=== PATIENT | female | born 1940 | race Caucasian/White ===

== ENCOUNTER 2016-05-28 18:41 | Observation (INO) ==
[2016-05-28] MEDS ORDERED: Ondansetron 4 MG/2 ML VIAL IVP ONE (18:48)
[2016-05-28] MEDS ORDERED: 0.9 % Sodium Chloride 1,000 ML IVC ONE (18:48)
[2016-05-28] MEDS ORDERED: *HR* HYDROmorphone (PF) 1 MG/ML SYRINGE IVP ONE (18:48)
--- NOTE | 2016-05-28 18:50 | Emergency Department Note ---
Disposition Clinical Impression: Gastroenteritis, Malaise and fatigue Abdominal pain Qualifiers: Abdominal location: periumbilical Qualified Code(s): R10.33 - Periumbilical pain Disposition: Admitted As Inpatient Referrals: Yaa Purvis CNP [Primary Care Provider] - Forms: Work/School Release, ED Satisfaction Letter Abdominal Pain HPI - General Chief Complaint: ED Abdominal Pain Stated Complaint: fall with abd pain and vomiting Time Seen by Provider: 05/28/16 18:45 Source: patient, EMS Mode of arrival: EMS Limitations: physical limitation Nursing Notes Reviewed: Yes Vital Signs Reviewed: Yes - History of Present Illness HPI Narrative: Impression presents with abdominal pain with bilious emesis. She initially reported that she might have had a fall but she has denied this on arrival. She is unable to localize abdominal pain but for EMS there is some indication of pain towards the right lower quadrant. She is unable to tell me when this started. She denies chest pain shortness of breath. She indicates that she is not having diarrhea. She has not been specific fevers or chills. She is unable to tell me if she has had exposure to similar problem, recent antibiotic or concern for food borne illness. She has not had pain like this before. After the first interview with this patient and ordering of laboratories returning to try to get more information from her. She is able indicate she had one episode of diarrhea and has been passing gas. The onset of this was this morning. Her pain is umbilical and it comes and goes. She has not had previous abdominal problems or procedures of any significance. Pt Subjective Complaint: abdominal pain Onset (ago): unknown Consistency: Worsening Location: periumbilical Pain Severity: moderate, severe Quality: cannot describe Radiation: none Improves with: nothing Worsens with: nothing Associated symptoms: Reports: nausea, vomiting, diarrhea. Denies: fever, chills Treatments prior to arrival: none - Related Data Home Medications Medication Instructions Recorded Confirmed Amlodipine [Norvasc] 5 mg PO DAILY 05/28/16 05/28/16 Furosemide [Lasix] 40 mg PO DAILY 05/28/16 05/28/16 Glipizide/Metformin HCl 1 each PO BID 05/28/16 05/28/16 [Glipizide-Metformin 5-500 mg] Hydrochlorothiazide 25 mg PO DAILY 05/28/16 05/28/16 Ibuprofen [Motrin] 600 mg PO TID PRN 05/28/16 05/28/16 Insulin Glargine,Hum.rec.anlog 20 unit SQ HS 05/28/16 05/28/16 [Lantus Solostar] Lisinopril [Zestril] 40 mg PO HS 05/28/16 05/28/16 Lovastatin [Altoprev] 40 mg PO QAM 05/28/16 05/28/16 Metoprolol [Lopressor] 100 mg PO BID 05/28/16 05/28/16 Potassium Chloride [Klor-Con 10] 10 meq PO QAM 05/28/16 05/28/16 Allergies Allergy/AdvReac Type Severity Reaction Status Date / Time Penicillins [PCN] Allergy Anaphylaxis Verified 05/28/16 19:02 All systems ED: reviewed and negative except as stated. Abdominal Pain PMH - Past Medical History Medical history: Reports: diabetes, hyperlipidemia, hypertension. Denies: coronary artery disease Female Surgical History: Reports: cataract (Retinal detachment) - Social History Smoking status: Never smoker Alcohol use: Reports: none Drug use: Reports: none Physical Exam - General Limitations: physical limitation (Patient persistently vomiting and with this is declining to answer many questions. This also has limited her ability to comply with exam.) General appearance: anxious, in distress - Head Head exam: atraumatic, normocephalic, normal inspection - Eye Eye exam: Present: normal appearance, PERRL, EOMI. Absent: scleral icterus, conjunctival injection - ENT ENT exam: normal exam, normal oropharynx, mucous membranes moist - Neck Neck exam: Present: normal inspection, full ROM, trachea midline - Chest Chest inspection: Present: normal inspection, symmetric chest wall rise - Respiratory Respiratory exam: Present: normal lung sounds bilaterally. Absent: respiratory distress, wheezes, prolonged expiratory phase - Cardiovascular Cardiovascular exam: Present: regular rate, normal rhythm, normal heart sounds - Abdominal Exam Abdominal exam: Present: soft, tenderness (Mild in the abdomen. She did not seem to have much pain response with palpation.), diminished bowel sounds. Absent: distention, guarding, rebound, rigidity, Wills's sign, tenderness at McBurney's Point - Extremities Exam Extremities exam: Present: normal inspection, full ROM, normal capillary refill. Absent: tenderness, pedal edema - Expanded Lower Extremity Exam Neurovascular/Tendon exam: Present: normal capillary refill. Absent: motor deficit, sensory deficit, tendon deficit Gait: not tested/not observed - Back Exam Back exam: Present: normal inspection, full ROM. Absent: tenderness, CVA tenderness (R), CVA tenderness (L) - Neurological Exam Neurological exam: Present: alert. Absent: motor sensory deficit - Psychiatric Psychiatric exam: Present: normal affect, anxious - Skin Skin exam: Present: intact, diaphoresis, pallor. Absent: cyanosis Course Course Narrative: 2020: All labs, EKG and imaging has been discussed with patient, family and ultimately with Dr. Mccuryd for inpatient observation and hydration. Verbal orders are obtained for her further care and she is being coordinated to an inpatient. She has remained in stable condition and has not been having further vomiting or diarrhea post initiation of IV fluids and medications. Vital Signs Temperature 97.0 F L 05/28/16 18:47 Pulse Rate 75 05/28/16 18:47 Respiratory Rate 18 05/28/16 18:47 Blood Pressure 91/54 05/28/16 18:47 O2 Sat by Pulse Oximetry 92 05/28/16 18:47 Temperature 97.0 F L 05/28/16 18:54 Pulse Rate 57 05/28/16 19:51 Respiratory Rate 18 05/28/16 19:51 Blood Pressure 92/34 05/28/16 19:51 O2 Sat by Pulse Oximetry 98 05/28/16 19:51 Oxygen Delivery Oxygen Delivery Room Air Abdominal Pain - Differential Diagnosis Differential Diagnosis: Likely: abdominal pain non-specific, acute appendicitis , diverticulitis, gastroenteritis, pancreatitis, small bowel obstruction - Lab Data Lab results reviewed: Yes I reviewed the patient's lab results. Result diagrams: 05/28/16 19:20 05/28/16 19:20 Lab Results 05/28/16 05/28/16 05/28/16 Range/Units 19:20 19:20 19:20 WBC 17.0 H (4.3-11.1) K/mcL RBC 4.50 (3.82-4.97) M/mcL Hgb 13.6 (11.5-15.4) g/dL Hct 40.7 (35.3-44.9) % MCV 90.4 (83.0-100.0) fL MCH 30.2 (28.0-33.3) pg MCHC 33.4 (31.6-35.5) g/dL RDW 13.2 (11.5-14.5) % Plt Count 293 (140-400) K/mcL MPV 12.3 (9.4-12.4) fL Immature Gran % 0.4 (0-4) % Seg Neutrophils % 75.6 % Lymphocytes % 14.6 % Monocytes % 5.9 % Eosinophils % 3.3 % Basophils % 0.2 % Neutrophils # 12.9 H (1.6-8.9) K/mcL Lymphocytes # 2.5 (0.6-4.6) K/mcL Monocytes # 1.0 (0.0-1.3) K/mcL Eosinophils # 0.6 (0.0-0.6) K/mcL Basophils # 0.0 (0.0-0.2) K/mcL PT (9.4-12.1) Seconds INR APTT (26.0-36.0) Seconds VBG Lactic Acid (0.5-2.2) mmol/L Sodium 134 L (136-145) mEq/L Potassium 4.0 (3.5-4.5) mEq/L Chloride 100 (98-109) mEq/L Carbon Dioxide 17 L (19-29) mEq/L BUN 44 H (7-20) mg/dL Creatinine 1.51 H (0.57-1.11) mg/dL Est GFR ( Amer) 41 L (> 60) Est GFR (Non-Af Amer) 33 L (> 60) BUN/Creatinine Ratio 29 H (6-26) Glucose 284 H (70-99) mg/dL Calculated Osmolality 299 (280-300) Calcium 11.0 H (8.6-10.8) mg/dL Total Bilirubin 0.9 (0.2-1.2) mg/dL Direct Bilirubin 0.3 (0.0-0.5) mg/dL Indirect Bilirubin 0.6 (0.0-1.2) mg/dL AST 15 (5-34) Units/L ALT 18 (0-55) Units/L Alkaline Phosphatase 87 (38-126) Units/L Troponin I 0.02 (0-0.03) ng/mL Serum Total Protein 6.4 (6.0-8.3) g/dL Albumin 3.3 L (3.5-5.0) g/dL Globulin 3.1 (2.4-3.5) g/dL Albumin/Globulin Ratio 1.1 (1.1-2.2) Amylase 95 (25-125) Units/L Lipase 67 (8-78) Units/L 05/28/16 05/28/16 Range/Units 19:20 19:45 WBC (4.3-11.1) K/mcL RBC (3.82-4.97) M/mcL Hgb (11.5-15.4) g/dL Hct (35.3-44.9) % MCV (83.0-100.0) fL MCH (28.0-33.3) pg MCHC (31.6-35.5) g/dL RDW (11.5-14.5) % Plt Count (140-400) K/mcL MPV (9.4-12.4) fL Immature Gran % (0-4) % Seg Neutrophils % % Lymphocytes % % Monocytes % % Eosinophils % % Basophils % % Neutrophils # (1.6-8.9) K/mcL Lymphocytes # (0.6-4.6) K/mcL Monocytes # (0.0-1.3) K/mcL Eosinophils # (0.0-0.6) K/mcL Basophils # (0.0-0.2) K/mcL PT 11.3 (9.4-12.1) Seconds INR 1.0 APTT 26.7 (26.0-36.0) Seconds VBG Lactic Acid 3.9 H (0.5-2.2) mmol/L Sodium (136-145) mEq/L Potassium (3.5-4.5) mEq/L Chloride (98-109) mEq/L Carbon Dioxide (19-29) mEq/L BUN (7-20) mg/dL Creatinine (0.57-1.11) mg/dL Est GFR ( Amer) (> 60) Est GFR (Non-Af Amer) (> 60) BUN/Creatinine Ratio (6-26) Glucose (70-99) mg/dL Calculated Osmolality (280-300) Calcium (8.6-10.8) mg/dL Total Bilirubin (0.2-1.2) mg/dL Direct Bilirubin (0.0-0.5) mg/dL Indirect Bilirubin (0.0-1.2) mg/dL AST (5-34) Units/L ALT (0-55) Units/L Alkaline Phosphatase (38-126) Units/L Troponin I (0-0.03) ng/mL Serum Total Protein (6.0-8.3) g/dL Albumin (3.5-5.0) g/dL Globulin (2.4-3.5) g/dL Albumin/Globulin Ratio (1.1-2.2) Amylase (25-125) Units/L Lipase (8-78) Units/L - Radiology Data Radiology results reviewed: Yes I reviewed the patient's radiology results. CT is performed of the abdomen and pelvis without IV or oral contrast. This demonstrates no evidence for pulmonary infiltrates, effusion or mass in the visible bases of the lungs. The liver, spleen and pancreas appear normal. The bowel is remarkable for some diverticular disease in the sigmoid colon without evidence for acute obstruction, perforation or other inflammation. There is no evidence for appendicitis. Kidneys are without stone or obstruction. Uterus has a calcified fibroid present. The spine has significant degenerative changes. The abdominal wall is without evidence for hernia. This is on my interpretation. Impressions Abdomen/Pelvis CT 05/28/16 18:49 IMPRESSION: 1. A few mildly dilated jejunal loops with associated mesenteric inflammatory stranding and suspected fold thickening, suggesting enteritis. 2. Liquid stool throughout much of the colon, suggesting diarrhea. D/ / Elmer An MD / Elmer An MD Interpreting Provider: Elmer An MD - EKG Data EKG attestation: Yes I reviewed and interpreted this EKG. EKG shows normal: sinus rhythm, axis, intervals, QRS complexes, ST-T waves Rate: normal (71) [place]/QRS: IVCD Interpretation: no acute changes
[2016-05-28 19:29] LABS: Basophils % 0.2 %; Eosinophils # 0.6 K/mcL (0.0-0.6); Eosinophils % 3.3 %; Hematocrit 40.7 % (35.3-44.9); Hemoglobin 13.6 g/dL (11.5-15.4); Immature Granulocytes % 0.4 % (0-4); Lymphocytes # 2.5 K/mcL (0.6-4.6); Lymphocytes % 14.6 %; Mean Corpuscular HGB Conc 33.4 g/dL (31.6-35.5); Mean Corpuscular Hemoglobin 30.2 pg (28.0-33.3); Mean Corpuscular Volume 90.4 fL (83.0-100.0); Mean Platelet Volume 12.3 fL (9.4-12.4); Monocytes % 5.9 %; Neutrophils # 12.9 K/mcL (1.6-8.9); Platelet Count 293 K/mcL (140-400); Red Cell Distribution Width 13.2 % (11.5-14.5); Segmented Neutrophils % 75.6 %
[2016-05-28 19:48] LABS: Albumin 3.3 g/dL (3.5-5.0); Albumin/Globulin Ratio 1.1 (1.1-2.2); Bilirubin,Direct 0.3 mg/dL (0.0-0.5); Bilirubin,Indirect 0.6 mg/dL (0.0-1.2); Bilirubin,Total 0.9 mg/dL (0.2-1.2); Globulin 3.1 g/dL (2.4-3.5); Total Protein 6.4 g/dL (6.0-8.3)
[2016-05-28 19:59] LABS: Prothrombin Time 11.3 Seconds (9.4-12.1)
[2016-05-28 20:01] LABS: Activated Partial Thrombo Time 26.7 Seconds (26.0-36.0)
[2016-05-28] MEDS ORDERED: MetroNIDAZOLE 500 MG/100 ML 500 MG/100 ML BAG IVPB SCH (20:26)
[2016-05-28] MEDS ORDERED: Dextrose Gel 15 GM PO PRN ×2 (21:18)
[2016-05-28] MEDS ORDERED: *HR* Dextrose 50 % in Water (Syg) 50 ML SYRINGE IVP PRN (21:18)
[2016-05-28] MEDS ORDERED: D5% in Water 1,000 ML IVC PRN (21:18)
[2016-05-28] MEDS ORDERED: Ondansetron 4 MG/2 ML VIAL IVP PRN (21:18)
[2016-05-28] MEDS ORDERED: *HR* HYDROmorphone (PF) 1 MG/ML SYRINGE IVP PRN (21:18)
[2016-05-28] MEDS ORDERED: Naloxone 0.4 MG/ML INJ IVP PRN (21:18)
[2016-05-29] MEDS: 0.9 % Sodium Chloride 1,000 ML IVC SCH (00:36)
[2016-05-29] MEDS: MetroNIDAZOLE 500 MG/100 ML 500 MG/100 ML BAG IVPB SCH ×3 (01:24→17:17)
[2016-05-29 03:25] LABS: Bilirubin,Urine Negative (Negative); Blood,Urine Small (Negative); Clarity,Urine Clear (Clear); Color,Urine Yellow (Yellow); Glucose,Urine (UA) 250 mg/dL (Normal); Ketones,Urine Negative (Negative); Leukocyte Esterase,Urine Small (Negative); Nitrite,Urine Positive (Negative); Protein,Urine 30 mg/dL (Neg-Trace); Urobilinogen,Urine Normal (Normal)
[2016-05-29 03:29] LABS: WBC,Urine 30-50 per hpf (0-3)
[2016-05-29 03:30] LABS: Bacteria,Urine Moderate per hpf (None-Few); Hyaline Casts,Urine Few per lpf (None-Few); Squamous Epithelial Cell,Urine Few per lpf (None-Few)
[2016-05-29 06:07] LABS: Basophils % 0.1 %; Eosinophils % 0.3 %; Hematocrit 35.8 % (35.3-44.9); Immature Granulocytes % 0.4 % (0-4); Lymphocytes # 1.5 K/mcL (0.6-4.6); Lymphocytes % 13.6 %; Mean Corpuscular HGB Conc 33.5 g/dL (31.6-35.5); Mean Corpuscular Hemoglobin 30.1 pg (28.0-33.3); Mean Corpuscular Volume 89.7 fL (83.0-100.0); Mean Platelet Volume 12.3 fL (9.4-12.4); Monocytes # 0.6 K/mcL (0.0-1.3); Monocytes % 5.9 %; Neutrophils # 8.5 K/mcL (1.6-8.9); Platelet Count 275 K/mcL (140-400); Red Blood Count 3.99 M/mcL (3.82-4.97); Segmented Neutrophils % 79.7 %
[2016-05-29 06:27] LABS: Albumin 3.1 g/dL (3.5-5.0); Albumin/Globulin Ratio 1.2 (1.1-2.2); Bilirubin,Total 0.9 mg/dL (0.2-1.2); Calcium 10.2 mg/dL (8.6-10.8); Globulin 2.6 g/dL (2.4-3.5); Potassium 4.1 mEq/L (3.5-4.5); Total Protein 5.7 g/dL (6.0-8.3)
[2016-05-29] MEDS: Insulin LISPRO 300 UNITS/3 ML VIAL SQ SCH ×3 (07:44→16:48)
[2016-05-29] MEDS: Pantoprazole 40 MG VIAL IVP SCH (08:07)
--- NOTE | 2016-05-29 11:11 | Internal Med History&Physical ---
Date of Encounter: 05/29/16 Time of Encounter: 10:40 Assessment and Plan (1) Gastroenteritis Current visit: Yes Status: Acute She was given Flagyl and Cipro with IV fluids through emergency room. I suspect she has viral gastroenteritis. Will discontinue antibiotics. She has had no further vomiting so IV fluids will also be discontinued. (2) CKD (chronic kidney disease) stage 3, GFR 30-59 ml/min Current visit: Yes Status: Acute Will discontinue ibuprofen, lisinopril, HCTZ, and Lasix. We will recheck labs in a.m. (3) DM type 2 (diabetes mellitus, type 2) Current visit: Yes Status: Acute We will check hemoglobin A1c in a.m. Continue basal insulin at reduced dose. We will hold glipizide/metformin because of renal insufficiency. Qualifiers: Diabetes mellitus complication status: with kidney complications Diabetes mellitus complication detail: with chronic kidney disease Diabetes mellitus termite helper insulin use: with termite helper use Chronic kidney disease stage: stage 3 (moderate) Qualified Code(s): E11.22 - Type 2 diabetes mellitus with diabetic chronic kidney disease; N18.3 - Chronic kidney disease, stage 3 ( moderate); Z79.4 - jail (current) use of insulin (4) UTI (urinary tract infection) Current visit: Yes Status: Acute She received IV Cipro through emergency room. Qualifiers: Urinary tract infection type: site unspecified Hematuria presence: with hematuria Qualified Code(s): N39.0 - Urinary tract infection, site not specified; R31.9 - Hematuria, unspecified (5) Edema Current visit: Yes Status: Acute Will discontinue ibuprofen and Norvasc. Qualifiers: Edema type: unspecified Qualified Code(s): R60.9 - Edema, unspecified (6) Hypertension Current visit: Yes Status: Chronic She has borderline hypotension now. Will withhold antihypertensive medications and monitor. Qualifiers: Hypertension type: essential hypertension Qualified Code(s): I10 - Essential (primary) hypertension Internal Medicine - H&P: HPI Chief complaint: Abdominal pain and vomiting Admitted From: Home Plans for Post Hospital Care: Home History of present illness: Ms. Hernandez is a 76 year old female who came to emergency room stating she had onset of abdominal pain and vomiting approximate 3 PM the day of admission. She denies unusual food intake. She had 2 episodes of vomiting at home without hematemesis observed. She had a diffuse mid abdominal discomfort that she states is now resolved. She denies diarrhea. She was evaluated in emergency room and admitted to [facility] floor for ongoing care needs. She denies disorders of her liver gallbladder or exocrine pancreas. She has not had previous similar episodes. She reports no other infectious symptoms. Past Med Surg Social Fam HX - Past Medical History Medical history: arthritis, diabetes, hyperlipidemia, hypertension, renal disease Psychiatric history: no psych history - Social History Smoking Status: Never smoker Smokeless Tobacco Status: No Alcohol use: none Drug use: none - Family History Mother Living Status: Hx Family Cardiac Disorders: Yes (heart failure) Internal Medicine - H&P: Meds Amlodipine [Norvasc] 5 mg PO DAILY 05/28/16 [History] Furosemide [Lasix] 40 mg PO DAILY 05/28/16 [History] Glipizide/Metformin HCl [Glipizide-Metformin 5-500 mg] 1 each PO BID 05/28/16 [ History] Hydrochlorothiazide 25 mg PO DAILY 05/28/16 [History] Ibuprofen [Motrin] 600 mg PO TID PRN 05/28/16 [History] Insulin Glargine,Hum.rec.anlog [Lantus Solostar] 20 unit SQ HS 05/28/16 [History ] Lisinopril [Zestril] 40 mg PO HS 05/28/16 [History] Lovastatin [Altoprev] 40 mg PO QAM 05/28/16 [History] Metoprolol [Lopressor] 100 mg PO BID 05/28/16 [History] Potassium Chloride [Klor-Con 10] 10 meq PO QAM 05/28/16 [History] Allergies Penicillins [PCN] Allergy (Verified 05/28/16 19:02) Anaphylaxis All Systems PM: A 10-system review of systems was performed and is negative for pertinent findings except as documented above in the HPI. Review of systems: Gen.: She reports her weight has decreased approximately 14 pounds in the past year, intentionally Cardiovascular: She has history of hypertension but denies AL heart failure angina DVT or pulmonary embolus. She has frequent leg edema. Respiratory: She is a lifelong nonsmoker denies any chronic lung disease. GI: As per history of present illness : She has been diagnosed with chronic kidney disease but has not yet seen a film masker. She states an appointment is scheduled next week. She denies other kidney or bladder disorders Neurologic: She denies large distribution strokes or seizures. Endocrine: She was diagnosed with DM 2 approximately 2011. She has hyperlipidemia but denies thyroid disease Hematology/oncology: She denies blood disorders cancers or anemia Psychiatric: She denies anxiety depression or other mental health issues Musk skeletal: She reports an arm fracture several years ago without complications. She has DJD. Denies gout or other bone joint or muscle disorders. - Constitutional Vitals: Temp Pulse Resp BP Pulse Ox 97.5 F L 70 18 115/60 94 05/29/16 10:46 05/29/16 10:46 05/29/16 10:46 05/29/16 10:46 05/29/16 10:46 Exam: General: She is a well-developed overweight female who appears in no severe distress at present time HEENT: Head is atraumatic and normocephalic. Eyes: EOMI. There is no scleral icterus. Mouth: Mucosa is moist. Neck: Supple and nontender. There is no thyromegaly or adenopathy noted. Heart: Regular without murmurs gallops or ectopics. Lungs: No wheezes or crackles heard. Abdomen: Bowel sounds are present. The abdomen has minimal tenderness to deep palpation in the epigastric area. No masses or guarding are noted. Extremities: There is trace edema of the dorsum of the feet and lower anterior shins bilaterally. Her feet are warm to touch. Dorsalis pedis and posttibial pulses are nonpalpable. She has mild DJD changes in the hands. Neurologic: Mental status: She is talkative and a good historian. Cranial nerves: Smile is symmetric. Forehead wrinkles bilaterally. Tongue protrudes midline. EOMI. Motor: There is no pronator drift. Cerebellar: Finger to nose intact bilaterally. Skin: Warm and dry Internal Med - H&P Results - Labs CBC & Chem 7: 05/29/16 05:55 05/29/16 05:40 Labs: Short CBC 05/29/16 Range/Units 05:55 WBC 10.7 (4.3-11.1) K/mcL Hgb 12.0 D (11.5-15.4) g/dL Hct 35.8 (35.3-44.9) % Plt Count 275 (140-400) K/mcL Neutrophils # 8.5 (1.6-8.9) K/mcL BMP 05/29/16 05:40 Sodium 135 L Potassium 4.1 Chloride 101 Carbon Dioxide 19 BUN 48 H Creatinine 1.61 H Glucose 295 H Calcium 10.2 Liver Function 05/29/16 Range/Units 05:40 Total Bilirubin 0.9 (0.2-1.2) mg/dL AST 12 (5-34) Units/L ALT 17 (0-55) Units/L Alkaline Phosphatase 79 (38-126) Units/L Albumin 3.1 L (3.5-5.0) g/dL Urine 05/29/16 Range/Units 02:43 Urine Color Yellow (Yellow) Urine Clarity Clear (Clear) Urine pH 5.0 (5.0-8.0) pH Units Ur Specific [place] 1.020 (1.010-1.025) Urine Protein 30 H (Neg-Trace) mg/dL Urine Glucose (UA) 250 H (Normal) mg/dL - VTE Documentation of Mechanical Device: Graduated compression elastic hosiery
--- NOTE | 2016-05-29 12:40 | Electrocardiograph Report ---
[place] [id number] Test Date: 2016-05-28 Pat Name: Luz Marina Hernandez Department: [id number] Room: [facility] Gender: F Java Sybase Developer: Cristina : 1940 Requested By: Miguel Angel Delgado Order Number: [id number] Reading MD: Anna Gilbert Measurements Intervals [place] Rate: 71 P: 30 DC: 202 QRS: -30 QRSD: 113 T: 43 QT: 420 QTc: 443 Interpretive Statements SINUS RHYTHM MODERATE INTRAVENTRICULAR CONDUCTION DELAY Electronically Signed On 05-29-2016 12:38:44 EDT by Anna Gilbert
[2016-05-30 05:05] LABS: Basophils % 0.4 %; Eosinophils # 0.4 K/mcL (0.0-0.6); Eosinophils % 4.5 %; Immature Granulocytes % 0.3 % (0-4); Lymphocytes # 2.3 K/mcL (0.6-4.6); Lymphocytes % 28.6 %; Mean Corpuscular HGB Conc 34.4 g/dL (31.6-35.5); Mean Corpuscular Hemoglobin 30.6 pg (28.0-33.3); Mean Corpuscular Volume 88.9 fL (83.0-100.0); Mean Platelet Volume 12.4 fL (9.4-12.4); Monocytes # 0.8 K/mcL (0.0-1.3); Monocytes % 10.2 %; Neutrophils # 4.5 K/mcL (1.6-8.9); Platelet Count 234 K/mcL (140-400); Red Cell Distribution Width 13.3 % (11.5-14.5)
[2016-05-30 05:20] LABS: Potassium 3.4 mEq/L (3.5-4.5)
[2016-05-30 05:21] LABS: Calcium 10.2 mg/dL (8.6-10.8); Magnesium 1.5 mg/dL (1.6-2.6)
[2016-05-30 06:32] VITALS: BP 111/55
[2016-05-30] MEDS: Pantoprazole 40 MG VIAL IVP SCH (08:09)
[2016-05-30] MEDS: 0.9 % Sodium Chloride 1,000 ML IVC SCH (08:11)
[2016-05-30] MEDS: Insulin LISPRO 300 UNITS/3 ML VIAL SQ SCH (08:23)
--- NOTE | 2016-05-30 08:44 | Discharge Summary ---
Date of Encounter: 05/30/16 Time of Encounter: 08:35 - Discharge Diagnosis (1) Gastroenteritis Priority: Primary Status: Resolved (2) CKD (chronic kidney disease) stage 3, GFR 30-59 ml/min Priority: Secondary Status: Chronic (3) DM type 2 (diabetes mellitus, type 2) Priority: Secondary Status: Chronic Qualifiers: Diabetes mellitus complication status: with kidney complications Diabetes mellitus complication detail: with chronic kidney disease Diabetes mellitus manager long term care insulin use: with manager long term care use Chronic kidney disease stage: stage 3 (moderate) Qualified Code(s): E11.22 - Type 2 diabetes mellitus with diabetic chronic kidney disease; N18.3 - Chronic kidney disease, stage 3 ( moderate); Z79.4 - meterman (current) use of insulin (4) UTI (urinary tract infection) Priority: Secondary Status: Resolved Qualifiers: Urinary tract infection type: site unspecified Hematuria presence: with hematuria Qualified Code(s): N39.0 - Urinary tract infection, site not specified; R31.9 - Hematuria, unspecified (5) Edema Priority: Secondary Status: Acute Qualifiers: Edema type: unspecified Qualified Code(s): R60.9 - Edema, unspecified (6) Hypertension Priority: Secondary Status: Chronic Qualifiers: Hypertension type: essential hypertension Qualified Code(s): I10 - Essential (primary) hypertension - Discharge Medications Home Medications: Lovastatin [Altoprev] 40 mg PO QAM 05/28/16 [History] Insulin Glargine,Hum.rec.anlog [Lantus Solostar] 30 unit SQ HS #0 05/30/16 [Rx] Metoprolol [Lopressor] 50 mg PO BID #0 05/30/16 [Rx] Allergies/Adverse Reactions: Allergies Penicillins [PCN] Allergy (Verified 05/28/16 19:02) Anaphylaxis Date of admission: 05/28/16 20:57 Primary care physician: Yaa Purvis CNP - Patient Status Disposition: Home, Self-Care Condition: Good Functional capacity at discharge: independent ambulation Overall status at discharge: patient is progressing back to baseline - Discharge Instructions Follow Up With: Yaa Purvis [Advanced Practice Nurse] - 1 week - Diet and Activity Activity: resume usual activities as tolerated Diet: diabetic diet Hospital course: Ms. Hernandez is a 76 year old female who came to emergency room stating she had onset of abdominal pain and vomiting approximate 3 PM the day of admission. She denies unusual food intake. She had 2 episodes of vomiting at home without hematemesis observed. She had a diffuse mid abdominal discomfort that she states is now resolved. She denies diarrhea. She was evaluated in emergency room and admitted to [facility] for ongoing care needs. Initial orders were written by the emergency room physician. I saw her on May 29 and performed the history and physical. She was initially given doses of IV Flagyl and Cipro through emergency room orders. When I saw her I suspect she had viral gastroenteritis. Antibiotics were discontinued. Leukocytosis resolved by May 29. There was resolution of the left shift on the WBC differential at the time of discharge. Her antihypertensive medications were discontinued since she had borderline hypotension. She was given IV fluids. Azotemia improved with creatinine decreasing to 1.36 by the day of discharge and estimated GFR rising to 38. Her metoprolol dose will be decreased to 50 mg twice a day. Amlodipine, lisinopril , Lasix, and hydrochlorothiazide will be discontinued for now. The glipizide/metformin combination was discontinued because of azotemia. I increased her Lantus dose to 30 units daily at bedtime and this can be adjusted further as an outpatient as needed. Her potassium level was slightly low at 3.4 on the day of discharge and magnesium level slightly low at 1.5. I felt these would normalize off diuretics without specific intervention needed. She felt significantly improved when I saw her May 30 and wished to be discharged home. She will follow with her PCP Yaa Purvis CNP within 1 week. - Time Spent with Patient Total time spent providing and/or coordinating discharge services: - Constitutional Vitals: Temp Pulse Resp BP Pulse Ox 98.3 F 81 16 111/55 91 05/30/16 06:15 05/30/16 07:38 05/30/16 06:15 05/30/16 07:38 05/30/16 06:15 - VTE Documentation of Mechanical Device: Graduated compression elastic hosiery
[2016-05-30 13:19] LABS: Hemoglobin A1C 8.8 %
== END 2016-05-30 10:48 | disposition home or self-care (01) ==
LOC: INPPIK 18:41 → EMEROOPIK 18:41 → INPPIK 21:25
PROVIDERS: ADMIT Internal Medicine; ATTEND Internal Medicine

== ENCOUNTER 2018-08-02 18:14 | Observation (INO) ==
--- NOTE | 2018-08-02 18:23 | Emergency Department Note ---
Disposition Clinical Impression: Congestive heart failure, UTI (urinary tract infection), Hypokalemia Disposition: Admitted As Inpatient Condition: Good Time of Disposition: 22:00 General Adult HPI - General Chief complaint: ED Shortness of Breath/Dyspnea Stated complaint: SOB DX WITH PNEUMONIA ON 07/25/18 Time Seen by Provider: 08/02/18 18:20 Source: patient, family Mode of arrival: wheelchair Limitations: no limitations Nursing Notes Reviewed: Yes Vital Signs Reviewed: Yes - History of Present Illness HPI Narrative: Patient was diagnosed with pneumonia on July 25 and today had a red-faced and felt a little more short of breath than usual so her daughter brought her to the emergency department for evaluation. She denies any shortness of breath or chest pain at the present time. Her oxygen saturations 96% on room air she is not had a fever. They tell me she is taking Levaquin as her antibiotic. Onset (ago): day(s) (day) Location: chest Consistency: intermittent Improves with: nothing Worsens with: nothing Associated symptoms: Reports: shortness of breath - Related Data Home Medications Medication Instructions Recorded Confirmed Lovastatin [Altoprev] 40 mg PO QAM 05/28/16 08/02/18 amLODIPine 5 mg PO DAILY 08/08/16 08/02/18 Furosemide [Lasix] 40 mg PO DAILY 09/05/16 08/02/18 Insulin Human Regular [HumuLIN R] 4 units SQ TIDAC 09/05/16 08/02/18 Insulin NPH Hum/Reg Insulin Hm 55 unit SQ TID 09/05/16 08/02/18 [Humulin 70-30 Vial] Metoprolol [Lopressor] 100 mg PO BID 09/05/16 08/02/18 hydroCHLOROthiazide 25 mg PO DAILY 09/05/16 08/02/18 [Hydrochlorothiazide] LORazepam [Ativan] 1 mg PO BID PRN 08/02/18 08/02/18 Loratadine [Claritin] 10 mg PO DAILY 08/02/18 08/02/18 Potassium Chloride [K-Tab ER] 40 meq PO DAILY 08/02/18 08/02/18 levoFLOXacin [Levaquin] 750 mg PO DAILY 08/02/18 08/02/18 Allergies Allergy/AdvReac Type Severity Reaction Status Date / Time naproxen [From Aleve] Allergy Anaphylaxis Verified 08/02/18 18:16 Penicillins [PCN] Allergy Anaphylaxis Verified 08/02/18 18:16 All systems ED: reviewed and negative except as stated. Review of Systems: As Per HPI Constitutional: Denies: fever, chills, weakness, weight change Eyes: Denies: eye pain, eye discharge, vision change ENT ED: Denies: ear pain, throat pain, dental pain, hearing loss, epistaxis, congestion, dysphagia Cardiovascular: Reports: as per HPI Respiratory: Reports: as per HPI, other (SOB) Gastrointestinal: Denies: abdominal pain, nausea, vomiting, diarrhea, constipation, hematemesis, melena, hematochezia Genitourinary: Denies: dysuria, frequency, hematuria, discharge Musculoskeletal: Denies: back pain, neck pain, arthralgia, myalgia Integumentary: Denies: rash, abrasion, lesions Neurological: Denies: headache, weakness, numbness, paresthesias, confusion, abnormal gait, vertigo Psychiatric: Denies: anxiety, depression, suicidal thoughts, homicidal thoughts, auditory hallucinations, visual hallucinations Endocrine: Denies: fatigue Hematological/Lymphatic: Denies: easy bleeding, easy bruising Allergic/Immunologic: Denies: facial swelling, urticaria Past Medical History - Past Medical History Attestation: Yes The following information was validated with the patient. Source: patient, obtained from family, nursing notes reviewed Medical history: Reports: arthritis, CHF, diabetes, hyperlipidemia, hyperte nsion, renal disease Surgical history: Reports: other (Cataract, retinal detachment) Psychiatric history: Reports: no psych history - Social History Smoking Status: Never smoker Smokeless Tobacco Status: No Alcohol use: Reports: none Drug use: Reports: none Physical Exam - General Limitations: no limitations General appearance: alert, in no apparent distress - Head Head exam: atraumatic, normocephalic, normal inspection - Eye Eye exam: Present: normal appearance, PERRL, EOMI - ENT ENT exam: normal exam, normal oropharynx, mucous membranes moist - Neck Neck exam: Present: normal inspection, full ROM, trachea midline - Chest Chest inspection: Present: normal inspection, symmetric chest wall rise - Respiratory Respiratory exam: Present: normal lung sounds bilaterally - Cardiovascular Cardiovascular exam: Present: regular rate, normal rhythm, normal heart sounds - Abdominal Exam Abdominal exam: Present: soft, Non-Tender, normal bowel sounds - Extremities Exam Extremities exam: Present: full ROM, pedal edema. Absent: tenderness - Back Exam Back exam: Present: normal inspection, full ROM. Absent: tenderness - Neurological Exam Neurological exam: Present: alert, oriented X3 - Psychiatric Psychiatric exam: Present: normal affect, normal mood - Skin Skin exam: Present: warm, dry, intact, normal color Course Vital Signs Temperature 97.6 F 08/02/18 18:22 Pulse Rate 63 08/02/18 18:22 Respiratory Rate 20 08/02/18 18:22 Blood Pressure 164/67 08/02/18 18:22 O2 Sat by Pulse Oximetry 96 08/02/18 18:22 Temperature 98.4 F 08/02/18 22:06 Pulse Rate 56 08/02/18 22:06 Respiratory Rate 16 08/02/18 22:06 Blood Pressure 157/85 08/02/18 22:06 O2 Sat by Pulse Oximetry 96 08/02/18 22:06 Oxygen Delivery Oxygen Delivery Room Air Medical Decision Making - MDM Narrative Medical decision making narrative: I reviewed the patient's medication list Case was discussed with Dr. Mccurdy who is graciously accepted admission - Lab Data Lab results reviewed: Yes I reviewed the patient's lab results. Result diagrams: 08/02/18 18:40 08/02/18 18:40 Lab Results 08/02/18 08/02/18 08/02/18 Range/Units 18:40 18:40 18:40 WBC 10.7 (4.3-11.1) K/mcL RBC 4.47 (3.82-4.97) M/mcL Hgb 13.2 (11.5-15.4) g/dL Hct 39.2 (35.3-44.9) % MCV 87.7 (83.0-100.0) fL MCH 29.5 (28.0-33.3) pg MCHC 33.7 (31.6-35.5) g/dL RDW 15.0 H (11.5-14.5) % Plt Count 290 (140-400) K/mcL MPV 11.2 (9.4-12.4) fL Immature Gran % 0.7 (0-4) % Seg Neutrophils % 63.8 % Lymphocytes % 24.4 % Monocytes % 9.5 % Eosinophils % 1.3 % Basophils % 0.3 % Neutrophils # 6.9 (1.6-8.9) K/mcL Lymphocytes # 2.6 (0.6-4.6) K/mcL Monocytes # 1.0 (0.0-1.3) K/mcL Eosinophils # 0.1 (0.0-0.6) K/mcL Basophils # 0.0 (0.0-0.2) K/mcL Sodium 135 L (136-145) mEq/L Potassium 2.7 L (3.5-5.1) mEq/L Chloride 97 L (98-107) mEq/L Carbon Dioxide 28 (23-29) mEq/L BUN 31 H (8-23) mg/dL Creatinine 1.63 H (0.60-1.20) mg/dL Est GFR ( Amer) 37 L (> 60) Est GFR (Non-Af Amer) 31 L (> 60) BUN/Creatinine Ratio 19 (6-26) Glucose 187 H (70-105) mg/dL Calculated Osmolality 291 (280-300) Calcium 10.8 H (8.6-10.3) mg/dL Troponin I < 0.03 (< 0.04) ng/mL B-Natriuretic Peptide 105 H (Less than 100) pg/mL Urine Color (Yellow) Urine Clarity (Clear) Urine pH (5.0-8.0) pH Units Ur Specific [place] (1.010-1.025) Urine Protein (Neg-Trace) mg/dL Urine Glucose (UA) (Normal) mg/dL Urine Ketones (Negative) mg/dL Urine Blood (Negative) Urine Nitrite (Negative) Urine Bilirubin (Negative) Urine Urobilinogen (Normal) mg/dL Ur Leukocyte Esterase (Negative) Urine Microscopic RBC (0-3) per hpf Urine Microscopic WBC (0-3) per hpf Urine Bacteria (None-Few) per hpf Ur Culture Indicated? (NO) 08/02/18 Range/Units 20:12 WBC (4.3-11.1) K/mcL RBC (3.82-4.97) M/mcL Hgb (11.5-15.4) g/dL Hct (35.3-44.9) % MCV (83.0-100.0) fL MCH (28.0-33.3) pg MCHC (31.6-35.5) g/dL RDW (11.5-14.5) % Plt Count (140-400) K/mcL MPV (9.4-12.4) fL Immature Gran % (0-4) % Seg Neutrophils % % Lymphocytes % % Monocytes % % Eosinophils % % Basophils % % Neutrophils # (1.6-8.9) K/mcL Lymphocytes # (0.6-4.6) K/mcL Monocytes # (0.0-1.3) K/mcL Eosinophils # (0.0-0.6) K/mcL Basophils # (0.0-0.2) K/mcL Sodium (136-145) mEq/L Potassium (3.5-5.1) mEq/L Chloride (98-107) mEq/L Carbon Dioxide (23-29) mEq/L BUN (8-23) mg/dL Creatinine (0.60-1.20) mg/dL Est GFR ( Amer) (> 60) Est GFR (Non-Af Amer) (> 60) BUN/Creatinine Ratio (6-26) Glucose (70-105) mg/dL Calculated Osmolality (280-300) Calcium (8.6-10.3) mg/dL Troponin I (< 0.04) ng/mL B-Natriuretic Peptide (Less than 100) pg/mL Urine Color Yellow (Yellow) Urine Clarity Cloudy A (Clear) Urine pH 7.0 (5.0-8.0) pH Units Ur Specific [place] 1.015 (1.010-1.025) Urine Protein 30 H (Neg-Trace) mg/dL Urine Glucose (UA) Normal (Normal) mg/dL Urine Ketones Negative (Negative) mg/dL Urine Blood Moderate H (Negative) Urine Nitrite Negative (Negative) Urine Bilirubin Negative (Negative) Urine Urobilinogen Normal (Normal) mg/dL Ur Leukocyte Esterase Large H (Negative) Urine Microscopic RBC 5-15 H (0-3) per hpf Urine Microscopic WBC 30-50 H (0-3) per hpf Urine Bacteria Few (None-Few) per hpf Ur Culture Indicated? YES A (NO) - Radiology Data Radiology results reviewed: Yes I reviewed the patient's radiology results. - EKG Data EKG #1 EKG attestation: Yes I reviewed and interpreted this EKG. EKG results narrative: EKG shows heart rate is 61 bpm sinus rhythm. We will start her 21 ms the first- degree AV block. QRS duration and 18 ms QT interval 446 QTC 450 ms R axis -2 degrees
[2018-08-02] MEDS ORDERED: Ipratropium/Albuterol Neb 3 ML IH ONE (18:26)
[2018-08-02 18:48] LABS: Basophils % 0.3 %; Eosinophils # 0.1 K/mcL (0.0-0.6); Eosinophils % 1.3 %; Hematocrit 39.2 % (35.3-44.9); Hemoglobin 13.2 g/dL (11.5-15.4); Immature Granulocytes % 0.7 % (0-4); Lymphocytes # 2.6 K/mcL (0.6-4.6); Lymphocytes % 24.4 %; Mean Corpuscular HGB Conc 33.7 g/dL (31.6-35.5); Mean Corpuscular Hemoglobin 29.5 pg (28.0-33.3); Mean Corpuscular Volume 87.7 fL (83.0-100.0); Mean Platelet Volume 11.2 fL (9.4-12.4); Monocytes % 9.5 %; Neutrophils # 6.9 K/mcL (1.6-8.9); Platelet Count 290 K/mcL (140-400); Red Blood Count 4.47 M/mcL (3.82-4.97); Segmented Neutrophils % 63.8 %; White Blood Count 10.7 K/mcL (4.3-11.1)
[2018-08-02 19:04] LABS: BUN/Creatinine Ratio 19 (6-26); Blood Urea Nitrogen 31 mg/dL (8-23); Calcium 10.8 mg/dL (8.6-10.3); Carbon Dioxide 28 mEq/L (23-29); Chloride 97 mEq/L (98-107); Glucose 187 mg/dL (70-105); Osmolality,Calculated 291 (280-300); Potassium 2.7 mEq/L (3.5-5.1); Sodium 135 mEq/L (136-145); eGFR For African Americans 37 (> 60); eGFR For Non-African Americans 31 (> 60)
[2018-08-02 19:08] LABS: Troponin I < 0.03 ng/mL (< 0.04)
[2018-08-02] MEDS ORDERED: Furosemide 40 MG/4 ML VIAL IVP ONE (19:53)
[2018-08-02 20:14] LABS: Bilirubin,Urine Negative (Negative); Blood,Urine Moderate (Negative); Color,Urine Yellow (Yellow); Glucose,Urine (UA) Normal (Normal); Ketones,Urine Negative (Negative); Leukocyte Esterase,Urine Large (Negative); Nitrite,Urine Negative (Negative); Protein,Urine 30 mg/dL (Neg-Trace); Specific Gravity,Urine 1.015 (1.010-1.025); Urobilinogen,Urine Normal (Normal)
[2018-08-02 20:15] LABS: Clarity,Urine Cloudy (Clear)
[2018-08-02 20:21] LABS: Bacteria,Urine Few per hpf (None-Few); WBC,Urine 30-50 per hpf (0-3)
[2018-08-02] MEDS ORDERED: Furosemide 40 MG in 0.9 % Sodium Chloride 100 ML IVPB SCH (21:29)
[2018-08-02] MEDS ORDERED: Naloxone 0.4 MG/ML INJ IVP PRN (21:29)
[2018-08-02] MEDS ORDERED: *HR* LORazepam 0.5 MG TABLET PO PRN (21:29)
[2018-08-02] MEDS ORDERED: Sulfamethoxazole/Trimeth 10 ML in D5% in Water 500 ML IVPB SCH (22:00)
[2018-08-03 06:11] LABS: Basophils % 0.3 %; Eosinophils # 0.1 K/mcL (0.0-0.6); Eosinophils % 1.3 %; Hematocrit 38.7 % (35.3-44.9); Hemoglobin 13.1 g/dL (11.5-15.4); Immature Granulocytes % 0.4 % (0-4); Lymphocytes # 2.2 K/mcL (0.6-4.6); Lymphocytes % 20.6 %; Mean Corpuscular HGB Conc 33.9 g/dL (31.6-35.5); Mean Corpuscular Hemoglobin 29.7 pg (28.0-33.3); Mean Corpuscular Volume 87.8 fL (83.0-100.0); Mean Platelet Volume 11.6 fL (9.4-12.4); Monocytes % 9.3 %; Neutrophils # 7.3 K/mcL (1.6-8.9); Platelet Count 248 K/mcL (140-400); Red Blood Count 4.41 M/mcL (3.82-4.97); Red Cell Distribution Width 14.9 % (11.5-14.5); Segmented Neutrophils % 68.1 %; White Blood Count 10.8 K/mcL (4.3-11.1)
[2018-08-03 06:20] LABS: Calcium 10.3 mg/dL (8.6-10.3); Potassium 2.7 mEq/L (3.5-5.1)
[2018-08-03] MEDS: Insulin NPH/REG 70/30 100 UNIT/ML (x5UNIT) SQ SCH ×3 (08:54→22:06)
[2018-08-03] MEDS: Insulin LISPRO 300 UNITS/3 ML VIAL SQ SCH ×3 (08:55→16:34)
[2018-08-03] MEDS ORDERED: amLODIPine 5 MG TABLET PO SCH (09:00)
[2018-08-03] MEDS ORDERED: levoFLOXacin 500 MG TABLET PO SCH (09:00)
[2018-08-03] MEDS ORDERED: Loratadine 10 MG TABLET PO SCH (09:00)
[2018-08-03] MEDS ORDERED: Sulfamethoxazole/Trimeth 10 ML in D5% in Water 500 ML IVPB SCH (09:00)
--- NOTE | 2018-08-03 12:40 | Electrocardiograph Report ---
[place] [id number] Test Date: 2018-08-02 Pat Name: Luz Marina Hernandez Department: EDP-12 Room: [facility] Gender: F Community Resource Consultant: : 1940 Requested By: Quinn Call Order Number: [id number] Reading MD: Teri Kelly Measurements Intervals [place] Rate: 61 P: -19 WA: 221 QRS: -2 QRSD: 118 T: 45 QT: 446 QTc: 450 Interpretive Statements Sinus rhythm Prolonged WA interval Nonspecific intraventricular conduction delay Electronically Signed On 08-03-2018 12:38:55 EDT by Teri Kelly
--- NOTE | 2018-08-03 15:17 | Internal Med History&Physical ---
Date of Encounter: 08/03/18 Time of Encounter: 14:50 Assessment and Plan (1) Hypokalemia Current visit: Yes Status: Acute Suspect secondary to HCTZ and Lasix. These will be discontinued and supplemental potassium will be given by oral and IV route. (2) UTI (urinary tract infection) Current visit: Yes Status: Acute She was started on Levaquin and Septra through emergency room. Levaquin will be continued. Lactobacillus will be added. Qualifiers: Urinary tract infection type: site unspecified Hematuria presence: without hematuria Qualified Code(s): N39.0 - Urinary tract infection, site not spec ified (3) Congestive heart failure Current visit: Yes Status: Acute BN peptide slightly elevated at 105 in emergency room. Lasix and HCTZ will be held due to hypokalemia. Lopressor will be continued. Qualifiers: Heart failure type: diastolic Heart failure chronicity: chronic Qualified Code(s): I50.32 - Chronic diastolic (congestive) heart failure (4) DM type 2 (diabetes mellitus, type 2) Current visit: No Status: Chronic Hemoglobin A1c was 8.8% on 05/30/2016. Recheck in a.m. Qualifiers: Diabetes mellitus penitentiary insulin use: with penitentiary use Diabetes mellitus complication status: with kidney complications Diabetes mellitus complication detail: with chronic kidney disease Chronic kidney disease stage: stage 3 (moderate) Qualified Code(s): E11.22 - Type 2 diabetes mellitus with diabetic chronic kidney disease; N18.3 - Chronic kidney disease, stage 3 (moderate); Z79.4 - terminal press operator (current) use of insulin (5) Hypertension Current visit: No Status: Chronic Continue Lopressor but hold HCTZ and Lasix. Qualifiers: Hypertension type: essential hypertension Qualified Code(s): I10 - Essential (primary) hypertension Internal Medicine - H&P: HPI Chief complaint: Dyspnea and cough Admitted From: Emergency Dept Plans for Post Hospital Care: Home History of present illness: Ms. Hernandez is a 78 year old female who came to emergency room stating she had 10 day history of dyspnea and cough. She received a prescription for antibiotic and other Rx for symptomatic treatment at a local urgent care several days ago and took the medication as directed. She denies vomiting diarrhea fevers or chills. When she did not feel significantly improved she came to emergency room and was evaluated and was felt to have exacerbation of heart failure and UTI with hypokalemia. [facility]. Respiratory history is significant for being a lifelong nonsmoker. She denies chronic lung disease and does not use home oxygen. Past Med Surg Social Fam HX - Past Medical History Medical history: arthritis, CHF, diabetes, hyperlipidemia, hypertension, renal disease Additional medical history: TYPE 2 DM, USES WC, [employer], Psychiatric history: no psych history - Past Surgical History Surgical History: other Additional surgical history: cataract sx - Social History Smoking Status: Never smoker Smokeless Tobacco Status: No Alcohol use: none Drug use: none - Family History Mother Living Status: Hx Family Cardiac Disorders: Yes (heart failure) Internal Medicine - H&P: Meds Lovastatin [Altoprev] 40 mg PO QAM 05/28/16 [History] amLODIPine 5 mg PO DAILY 08/08/16 [History] Furosemide [Lasix] 40 mg PO DAILY 09/05/16 [History] Insulin Human Regular [HumuLIN R] 4 units SQ TIDAC 09/05/16 [History] Insulin NPH Hum/Reg Insulin Hm [Humulin 70-30 Vial] 55 unit SQ TID 09/05/16 [History] Metoprolol [Lopressor] 100 mg PO BID 09/05/16 [History] hydroCHLOROthiazide [Hydrochlorothiazide] 25 mg PO DAILY 09/05/16 [History] LORazepam [Ativan] 1 mg PO BID PRN 08/02/18 [History] Loratadine [Claritin] 10 mg PO DAILY 08/02/18 [History] Potassium Chloride [K-Tab ER] 40 meq PO DAILY 08/02/18 [History] levoFLOXacin [Levaquin] 750 mg PO DAILY 08/02/18 [History] Allergy/AdvReac Type Severity Reaction Status Date / Time ibuprofen Allergy Itching Verified 08/03/18 07:25 naproxen [From Aleve] Allergy Anaphylaxis Verified 08/02/18 18:16 Penicillins [PCN] Allergy Anaphylaxis Verified 08/02/18 18:16 All Systems PM: A 10-system review of systems was performed and is negative for pertinent findings except as documented above in the HPI. Review of systems: Review of systems from her May 2016 [facility] hospitalization were reviewed and revised as below. Gen.: Her weight has increased from 93.213 kg on 05/29/2016 to 102.228 kilograms at present Cardiovascular: She has history of hypertension but denies WI heart failure angina DVT or pulmonary embolus. Echocardiogram 06/12/2016 showed LVEF of 65%. No significant valvular abnormalities were seen. The interventricular septum and posterior wall thickness measurements were 1.16 and 1.20 cm respectively. There was LAE at 4.20 cm. E/A ratio was 0.6. Respiratory: As per history of present illness GI: She denies disorders of her liver gallbladder or exocrine pancreas : She has been diagnosed with chronic kidney disease and saw a professor of special education for a few visits but states she was discharge back to her PCP. She denies other kidney or bladder disorders Neurologic: She denies large distribution strokes or seizures. Endocrine: She was diagnosed with DM 2 approximately 2011. She has hyperlipidemia but denies thyroid disease Hematology/oncology: She denies blood disorders cancers or anemia Psychiatric: She denies anxiety depression or other mental health issues Musk skeletal: She reports an arm fracture several years ago without complications. She has DJD. She denies gout or other bone joint or muscle disorders. - Constitutional Vitals: Temp Pulse Resp BP Pulse Ox 97.7 F 60 16 149/72 94 08/03/18 14:51 08/03/18 14:51 08/03/18 14:51 08/03/18 14:51 08/03/18 14:51 Exam: Gen.: She is a well-developed overweight female resting comfortably in bed who appears in no acute distress HEENT: Head is atraumatic and normocephalic. Eyes: EOMI. There is no scleral icterus. Mouth: Mucosa is moist. Neck: Supple and nontender. There is no thyromegaly or adenopathy noted. Heart: Regular without murmurs gallops or ectopics Lungs: No wheezes or crackles are heard. Abdomen: Soft and nontender. No masses or guarding are noted. Extremities: There is no cyanosis or clubbing noted. She has trace edema of the dorsum the feet and lower legs bilaterally. Dorsalis pedis and posterior tibial pulses are trace to 1+ palpable bilaterally. Neurologic: Mental status: She is talkative and a good historian. Cranial nerves: Smile is symmetric. Forehead wrinkles bilaterally. Tongue protrudes midline. EOMI. Motor: There is no pronator drift. Cerebellar: Fair to nose is intact bilaterally. Skin: Warm and dry Internal Med - H&P Results - Labs CBC & Chem 7: 08/03/18 05:45 08/03/18 05:45 Labs: Short CBC 08/02/18 08/03/18 Range/Units 18:40 05:45 WBC 10.7 10.8 (4.3-11.1) K/mcL Hgb 13.2 13.1 (11.5-15.4) g/dL Hct 39.2 38.7 (35.3-44.9) % Plt Count 290 248 (140-400) K/mcL Neutrophils # 6.9 7.3 (1.6-8.9) K/mcL BMP 08/02/18 08/03/18 18:40 05:45 Sodium 135 L 135 L Potassium 2.7 L 2.7 L Chloride 97 L 98 Carbon Dioxide 28 30 H BUN 31 H 30 H Creatinine 1.63 H 1.49 H Glucose 187 H 143 H Calcium 10.8 H 10.3 Cardiac Enzymes 08/02/18 Range/Units 18:40 Troponin I < 0.03 (< 0.04) ng/mL Urine 08/02/18 Range/Units 20:12 Urine Color Yellow (Yellow) Urine Clarity Cloudy A (Clear) Urine pH 7.0 (5.0-8.0) pH Units Ur Specific [place] 1.015 (1.010-1.025) Urine Protein 30 H (Neg-Trace) mg/dL Urine Glucose (UA) Normal (Normal) mg/dL - Impressions ITS Impressions Chest X-Ray 08/02/18 18:26 IMPRESSION: Findings suggest congestive heart failure D/ / Elmer Ruth MD / Elmer Ruth MD Interpreting Provider: Elmer Ruth MD Chest X-Ray 08/03/18 07:00 IMPRESSION: 1. No acute cardiopulmonary disease. 2. Stable cardiomegaly, without evidence of overt failure. D/ / Lake Wagner MD / Lake Wagner MD Interpreting Provider: Lake Wagner MD
[2018-08-03] MEDS: 0.45 % Sodium Chloride w/KCl 20 MEQ/1,000 ML MLS IVC SCH (16:19)
[2018-08-03] MEDS: Lactobacillus 1 EACH CAP.SPRINK PO SCH (22:06)
[2018-08-04] MEDS ORDERED: *HR* Dextrose 50 % in Water (Syg) 50 ML SYRINGE IVP PRN (02:09)
[2018-08-04] MEDS ORDERED: Dextrose Gel 15 GM/37.5 ML TUBE PO PRN ×2 (02:09)
[2018-08-04] MEDS ORDERED: D5% in Water 1,000 ML IVC PRN (02:09)
[2018-08-04] MEDS: 0.45 % Sodium Chloride w/KCl 20 MEQ/1,000 ML MLS IVC SCH (05:42)
[2018-08-04 05:53] LABS: Basophils % 0.1 %; Eosinophils # 0.1 K/mcL (0.0-0.6); Eosinophils % 0.9 %; Hematocrit 40.3 % (35.3-44.9); Hemoglobin 13.6 g/dL (11.5-15.4); Immature Granulocytes % 0.6 % (0-4); Lymphocytes # 1.8 K/mcL (0.6-4.6); Lymphocytes % 12.9 %; Mean Corpuscular HGB Conc 33.7 g/dL (31.6-35.5); Mean Corpuscular Volume 88.8 fL (83.0-100.0); Mean Platelet Volume 11.7 fL (9.4-12.4); Monocytes # 1.2 K/mcL (0.0-1.3); Monocytes % 8.2 %; Neutrophils # 10.8 K/mcL (1.6-8.9); Platelet Count 257 K/mcL (140-400); Red Blood Count 4.54 M/mcL (3.82-4.97); Segmented Neutrophils % 77.3 %
[2018-08-04 07:44] LABS: Albumin 3.6 g/dL (3.5-5.7); Albumin/Globulin Ratio 1.3 (1.1-2.2); Bilirubin,Total 0.6 mg/dL (0.3-1.0); Calcium 10.2 mg/dL (8.6-10.3); Globulin 2.8 g/dL (2.4-3.5); Potassium 3.7 mEq/L (3.5-5.1); Thyroid Stimulating Hormone 2.08 mcIU/mL (0.340-5.600); Total Protein 6.4 g/dL (6.4-8.9)
[2018-08-04] MEDS: Insulin NPH/REG 70/30 100 UNIT/ML (x5UNIT) SQ SCH (08:00)
[2018-08-04] MEDS: Insulin LISPRO 300 UNITS/3 ML VIAL SQ SCH (08:00)
[2018-08-04 08:01] VITALS: BP 157/66
[2018-08-04] MEDS: Lactobacillus 1 EACH CAP.SPRINK PO SCH (08:08)
--- NOTE | 2018-08-04 08:34 | Discharge Summary ---
Orders not resulted at time of discharge: Pending orders 08/02/18 20:12 Culture,Urine [RM] Stat 08/04/18 05:32 Hgb A1C AM 0400 Vitamin B12 AM 0400 Date of Encounter: 08/04/18 Time of Encounter: 08:25 - Discharge Diagnosis (1) Hypokalemia Priority: Primary Status: Resolved (2) UTI (urinary tract infection) Priority: Secondary Status: Acute Qualifiers: Urinary tract infection type: site unspecified Hematuria presence: without hematuria Qualified Code(s): N39.0 - Urinary tract infection, site not specified (3) Congestive heart failure Priority: Secondary Status: Acute Qualifiers: Heart failure type: diastolic Heart failure chronicity: chronic Qualified Code(s): I50.32 - Chronic diastolic (congestive) heart failure (4) DM type 2 (diabetes mellitus, type 2) Priority: Secondary Status: Chronic Qualifiers: Diabetes mellitus longterm insulin use: with longterm use Diabetes mellitus complication status: with kidney complications Diabetes mellitus complication detail: with chronic kidney disease Chronic kidney disease stage: stage 3 (moderate) Qualified Code(s): E11.22 - Type 2 diabetes mellitus with diabetic chronic kidney disease; N18.3 - Chronic kidney disease, stage 3 (moderate); 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 Hernandez is a 78 year old female who came to emergency room stating she had 10 day history of dyspnea and cough. She received a prescription for antibiotic and other Rx for symptomatic treatment at a local urgent care several days ago and took the medication as directed. She denies vomiting diarrhea fevers or chills. When she did not feel significantly improved she came to emergency room and was evaluated and was felt to have exacerbation of heart failure and UTI with hypokalemia. She was admitted to [facility] floor for ongoing care needs. Initial orders were written by the emergency room physician. I saw her on August 03 and performed a history and physical. She was given oral and IV supplemental potassium. Hypokalemia resolved by day of discharge with her potassium level rising to 3.7. Lasix and HCTZ were held. IV fluids were given and BUN and creatinine improved to 24 and 1.33 respectively by day of discharge with estimated GFR 39. Hypokalemia resolved as per above. She will remain off these medications at home. Amlodipine was also held and blood pressure remained satisfactory. Her PCP can monitor and adjust medications as needed. She was given a dose of Septra and Levaquin in emergency room. Levaquin was continued. Urine final culture report is pending at time of discharge. The crow lindquist was afebrile during her hospital stay. On August 04 she felt stable for discharge home. She will follow with her PCP Yaa Purvis CNP within 1 week. Home health services will be ordered. - Time Spent with Patient Total time spent providing and/or coordinating discharge services: - Discharge Medications Prescriptions: Continued Lovastatin [Altoprev] 40 mg PO QAM Metoprolol [Lopressor] 100 mg PO BID Insulin NPH Hum/Reg Insulin Hm [Humulin 70-30 Vial] 55 unit SQ TID Insulin Human Regular [HumuLIN R] 4 units SQ TIDAC levoFLOXacin [Levaquin] 750 mg PO DAILY Loratadine [Claritin] 10 mg PO DAILY LORazepam [Ativan] 1 mg PO BID PRN PRN Reason: Anxiety Discontinued amLODIPine 5 mg PO DAILY hydroCHLOROthiazide [Hydrochlorothiazide] 25 mg PO DAILY Furosemide [Lasix] 40 mg PO DAILY Potassium Chloride [K-Tab ER] 40 meq PO DAILY Home Medications: Lovastatin [Altoprev] 40 mg PO QAM 05/28/16 [History] Insulin Human Regular [HumuLIN R] 4 units SQ TIDAC 09/05/16 [History] Insulin NPH Hum/Reg Insulin Hm [Humulin 70-30 Vial] 55 unit SQ TID 09/05/16 [History] Metoprolol [Lopressor] 100 mg PO BID 09/05/16 [History] LORazepam [Ativan] 1 mg PO BID PRN 08/02/18 [History] Loratadine [Claritin] 10 mg PO DAILY 08/02/18 [History] levoFLOXacin [Levaquin] 750 mg PO DAILY 08/02/18 [History] Allergies/Adverse Reactions: Allergy/AdvReac Type Severity Reaction Status Date / Time ibuprofen Allergy Itching Verified 08/03/18 07:25 naproxen [From Aleve] Allergy Anaphylaxis Verified 08/02/18 18:16 Penicillins [PCN] Allergy Anaphylaxis Verified 08/02/18 18:16 Date of admission: 08/02/18 21:17 Primary care physician: Yaa Purvis - Constitutional Vitals: Temp Pulse Resp BP Pulse Ox 97.9 F 63 16 157/66 96 08/04/18 07:59 08/04/18 07:59 08/04/18 07:59 08/04/18 07:59 08/04/18 07:59 - Patient Status Disposition: Home Health Service Condition: Good - Discharge Instructions Follow Up With: Yaa Purvis [Primary Care Provider] - 1 week - Diet and Activity Activity: resume usual activities as tolerated Diet: advance to your usual diet
[2018-08-04 09:44] LABS: Estimated Average Glucose 214 mg/dl
[2018-08-05] MEDS ORDERED: levoFLOXacin 500 MG TABLET PO SCH (09:00)
== END 2018-08-04 09:45 | disposition home health service (06) ==
LOC: INPPIK → EMEROOPIK 18:14 → INPPIK 18:14
PROVIDERS: ADMIT Internal Medicine; ATTEND Internal Medicine

== ENCOUNTER 2018-11-30 14:55 | Observation (INO) ==
[2018-11-30] MEDS ORDERED: Isovue-370 500 ML BOTTLE IVP ONE ×2 (15:06→18:20)
[2018-11-30 15:25] LABS: Bilirubin,Urine Negative (Negative); Blood,Urine Moderate (Negative); Clarity,Urine Clear (Clear); Color,Urine Yellow (Yellow); Glucose,Urine (UA) 100 mg/dL (Normal); Ketones,Urine Negative (Negative); Leukocyte Esterase,Urine Small (Negative); Nitrite,Urine Negative (Negative); Protein,Urine 100 mg/dL (Neg-Trace); Urobilinogen,Urine Normal (Normal)
[2018-11-30 15:35] LABS: Bacteria,Urine Few per hpf (None-Few); RBC,Urine 15-30 per hpf (0-3); Squamous Epithelial Cell,Urine Few per lpf (None-Few)
[2018-11-30 15:50] LABS: Basophils % 0.1 %; Eosinophils # 0.1 K/mcL (0.0-0.6); Eosinophils % 1.2 %; Hemoglobin 13.4 g/dL (11.5-15.4); Immature Granulocytes % 0.2 % (0-4); Lymphocytes # 1.7 K/mcL (0.6-4.6); Lymphocytes % 20.5 %; Mean Corpuscular HGB Conc 32.7 g/dL (31.6-35.5); Mean Corpuscular Hemoglobin 30.1 pg (28.0-33.3); Mean Corpuscular Volume 92.1 fL (83.0-100.0); Monocytes # 0.6 K/mcL (0.0-1.3); Neutrophils # 5.6 K/mcL (1.6-8.9); Platelet Count 251 K/mcL (140-400); Red Blood Count 4.45 M/mcL (3.82-4.97)
[2018-11-30 15:57] LABS: INR 1.1; Prothrombin Time 12.1 Seconds (9.4-12.1)
[2018-11-30 16:08] LABS: Alanine Aminotransferase 8 Units/L (7-52); Albumin 3.3 g/dL (3.5-5.7); Albumin/Globulin Ratio 1.1 (1.1-2.2); Alkaline Phosphatase 123 Units/L (34-104); Aspartate Amino Transferase 10 Units/L (13-39); BUN/Creatinine Ratio 19 (6-26); Blood Urea Nitrogen 21 mg/dL (8-23); Calcium 10.2 mg/dL (8.6-10.3); Carbon Dioxide 30 mEq/L (23-29); Chloride 102 mEq/L (98-107); Creatine Kinase 24 Units/L (30-223); Glucose 265 mg/dL (70-105); Magnesium 1.9 mg/dL (1.6-2.6); Osmolality,Calculated 298 (280-300); Potassium 3.7 mEq/L (3.5-5.1); Sodium 138 mEq/L (136-145); Total Protein 6.3 g/dL (6.4-8.9); eGFR For African Americans 58 (> 60); eGFR For Non-African Americans 48 (> 60)
[2018-11-30 16:09] LABS: Troponin I < 0.03 ng/mL (< 0.04)
[2018-11-30 16:22] LABS: Thyroid Stimulating Hormone 3.662 mcIU/mL (0.340-5.600)
[2018-11-30] MEDS ORDERED: cefTRIAXone 1,000 MG in Water for inj. (sterile) 10 ML IVP ONE (16:30)
[2018-11-30] MEDS ORDERED: Mag Hydrox/Al Hydrox/Simeth 30 ML UDC PO PRN (18:20)
[2018-11-30] MEDS ORDERED: *HR* HYDROcodone/Acet 5/325 mg TABLET PO PRN (18:20)
[2018-11-30] MEDS ORDERED: Naloxone 0.4 MG/ML INJ IVP PRN (18:20)
[2018-11-30] MEDS ORDERED: Acetaminophen 325 MG TABLET PO PRN (18:20)
[2018-11-30] MEDS ORDERED: MOM Conc 10 ML UD.LIQ PO PRN (18:20)
[2018-11-30] MEDS ORDERED: *HR* LORazepam 1 MG TABLET PO PRN (18:20)
[2018-11-30] MEDS ORDERED: Ondansetron 4 MG/2 ML VIAL IVP PRN (18:20)
[2018-11-30] MEDS: Insulin LISPRO 300 UNITS/3 ML VIAL SQ SCH (19:08)
[2018-11-30] MEDS ORDERED: Insulin NPH/REG 70/30 300 UNIT/3 ML per UNIT SQ ONE (21:00)
[2018-12-01 05:41] LABS: Basophils % 0.2 %; Eosinophils # 0.1 K/mcL (0.0-0.6); Eosinophils % 1.4 %; Hematocrit 37.1 % (35.3-44.9); Hemoglobin 12.1 g/dL (11.5-15.4); Immature Granulocytes % 0.2 % (0-4); Lymphocytes # 2.4 K/mcL (0.6-4.6); Lymphocytes % 27.9 %; Mean Corpuscular HGB Conc 32.6 g/dL (31.6-35.5); Mean Corpuscular Volume 92.1 fL (83.0-100.0); Mean Platelet Volume 12.3 fL (9.4-12.4); Monocytes # 0.8 K/mcL (0.0-1.3); Monocytes % 9.3 %; Neutrophils # 5.2 K/mcL (1.6-8.9); Platelet Count 253 K/mcL (140-400); Red Blood Count 4.03 M/mcL (3.82-4.97); Red Cell Distribution Width 14.1 % (11.5-14.5); White Blood Count 8.5 K/mcL (4.3-11.1)
[2018-12-01 05:58] LABS: Calcium 10.2 mg/dL (8.6-10.3); Potassium 3.8 mEq/L (3.5-5.1)
[2018-12-01] MEDS: Insulin LISPRO 300 UNITS/3 ML VIAL SQ SCH ×3 (07:49→16:10)
[2018-12-01] MEDS: Insulin NPH/REG 70/30 100 UNIT/ML (x5UNIT) SQ SCH ×3 (08:36→16:10)
[2018-12-02 07:15] VITALS: BP 179/80
[2018-12-02] MEDS: Insulin LISPRO 300 UNITS/3 ML VIAL SQ SCH ×2 (08:12→12:33)
[2018-12-02] MEDS: Insulin NPH/REG 70/30 100 UNIT/ML (x5UNIT) SQ SCH ×2 (08:13→12:33)
[2018-12-02 09:12] LABS: Estimated Average Glucose 206 mg/dl
== END 2018-12-02 13:50 | disposition home health service (06) ==
LOC: INPPIK 14:55 → EMEROOPIK 14:55 → INPPIK 17:28
PROVIDERS: ADMIT Internal Medicine; ATTEND Internal Medicine

== ENCOUNTER 2018-12-22 16:20 | Inpatient (IN) ==
[2018-12-22] MEDS ORDERED: Insulin NPH/REG 70/30 300 UNIT/3 ML per UNIT SQ ONE (21:45)
[2018-12-22] MEDS: *HR* LORazepam 0.5 MG TABLET PO PRN (22:13)
[2018-12-23] MEDS ORDERED: Dextrose Gel 15 GM/37.5 ML TUBE PO ONE (04:18)
[2018-12-23] MEDS ORDERED: Dextrose Gel 15 GM/37.5 ML TUBE PO PRN ×2 (04:38)
[2018-12-23] MEDS ORDERED: D5% in Water 1,000 ML IVC PRN (04:38)
[2018-12-23] MEDS ORDERED: *HR* Dextrose 50 % in Water (Syg) 50 ML SYRINGE IVP PRN (04:38)
[2018-12-23] MEDS: Insulin NPH/REG 70/30 100 UNIT/ML (x5UNIT) SQ SCH ×3 (07:40→16:18)
[2018-12-23] MEDS ORDERED: *HR* Dextrose 50 % in Water (Vial) 50 ML VIAL IVP PRN (07:45)
[2018-12-23] MEDS: Cholecalciferol (D-3) 1,000 UNIT (25MCG) TABLET PO SCH (08:07)
[2018-12-23] MEDS: Furosemide 40 MG TABLET PO SCH (08:07)
[2018-12-23] MEDS ORDERED: hydroCHLOROthiazide 25 MG TABLET PO SCH (09:00)
[2018-12-23] MEDS: Acetaminophen 325 MG TABLET PO SCH (23:27)
[2018-12-24] MEDS: Acetaminophen 325 MG TABLET PO SCH ×3 (06:35→17:09)
[2018-12-24] MEDS: Insulin NPH/REG 70/30 100 UNIT/ML (x5UNIT) SQ SCH ×2 (09:34→17:08)
[2018-12-24] MEDS: Furosemide 40 MG TABLET PO SCH (09:35)
[2018-12-24] MEDS: Cholecalciferol (D-3) 1,000 UNIT (25MCG) TABLET PO SCH (09:36)
[2018-12-24] MEDS: hydroCHLOROthiazide 25 MG TABLET PO SCH (10:16)
[2018-12-25] MEDS: Acetaminophen 325 MG TABLET PO SCH ×4 (00:33→17:06)
[2018-12-25] MEDS: *HR* LORazepam 0.5 MG TABLET PO PRN (03:29)
[2018-12-25] MEDS: Insulin NPH/REG 70/30 100 UNIT/ML (x5UNIT) SQ SCH ×2 (09:31→17:06)
[2018-12-25] MEDS: Cholecalciferol (D-3) 1,000 UNIT (25MCG) TABLET PO SCH (09:32)
[2018-12-25] MEDS: Furosemide 40 MG TABLET PO SCH (09:32)
[2018-12-25] MEDS: hydroCHLOROthiazide 25 MG TABLET PO SCH (09:32)
[2018-12-25] MEDS ORDERED: Ondansetron ODT 4 MG TAB.RAPDIS SL PRN (14:46)
[2018-12-26] MEDS: Acetaminophen 325 MG TABLET PO SCH ×3 (00:01→12:16)
[2018-12-26 07:06] LABS: Basophils % 0.3 %; Eosinophils # 0.3 K/mcL (0.0-0.6); Eosinophils % 3.8 %; Hematocrit 38.1 % (35.3-44.9); Hemoglobin 12.1 g/dL (11.5-15.4); Immature Granulocytes % 0.4 % (0-4); Lymphocytes # 1.9 K/mcL (0.6-4.6); Lymphocytes % 25.2 %; Mean Corpuscular HGB Conc 31.8 g/dL (31.6-35.5); Mean Corpuscular Hemoglobin 29.7 pg (28.0-33.3); Mean Corpuscular Volume 93.4 fL (83.0-100.0); Mean Platelet Volume 12.1 fL (9.4-12.4); Monocytes # 0.8 K/mcL (0.0-1.3); Monocytes % 11.3 %; Neutrophils # 4.4 K/mcL (1.6-8.9); Platelet Count 202 K/mcL (140-400); Red Blood Count 4.08 M/mcL (3.82-4.97); Red Cell Distribution Width 14.2 % (11.5-14.5); White Blood Count 7.4 K/mcL (4.3-11.1)
[2018-12-26 07:28] LABS: Calcium 10.1 mg/dL (8.6-10.3)
[2018-12-26 07:45] LABS: Activated Partial Thrombo Time 30.6 Seconds (26.0-36.0); Prothrombin Time 11.3 Seconds (9.4-12.1)
[2018-12-26] MEDS: Insulin NPH/REG 70/30 100 UNIT/ML (x5UNIT) SQ SCH ×2 (08:39→17:08)
[2018-12-26] MEDS: Cholecalciferol (D-3) 1,000 UNIT (25MCG) TABLET PO SCH (08:41)
[2018-12-26] MEDS: Furosemide 40 MG TABLET PO SCH (08:41)
[2018-12-26] MEDS: hydroCHLOROthiazide 25 MG TABLET PO SCH (08:41)
[2018-12-26] MEDS: Acetaminophen 325 MG TABLET PO PRN (19:00)
[2018-12-27] MEDS: hydroCHLOROthiazide 25 MG TABLET PO SCH (08:32)
[2018-12-27] MEDS: Furosemide 40 MG TABLET PO SCH (08:32)
[2018-12-27] MEDS: Insulin NPH/REG 70/30 100 UNIT/ML (x5UNIT) SQ SCH ×2 (08:32→16:50)
[2018-12-27] MEDS: Cholecalciferol (D-3) 1,000 UNIT (25MCG) TABLET PO SCH (08:32)
[2018-12-27] MEDS: Acetaminophen 325 MG TABLET PO PRN (14:38)
[2018-12-28] MEDS: Acetaminophen 325 MG TABLET PO PRN ×3 (03:19→20:18)
[2018-12-28] MEDS: Insulin NPH/REG 70/30 100 UNIT/ML (x5UNIT) SQ SCH ×3 (08:46→17:32)
[2018-12-28] MEDS: Furosemide 40 MG TABLET PO SCH (08:48)
[2018-12-28] MEDS: hydroCHLOROthiazide 25 MG TABLET PO SCH (08:48)
[2018-12-28] MEDS: Cholecalciferol (D-3) 1,000 UNIT (25MCG) TABLET PO SCH (08:48)
[2018-12-29] MEDS: Insulin NPH/REG 70/30 100 UNIT/ML (x5UNIT) SQ SCH ×2 (08:08→17:09)
[2018-12-29] MEDS: Cholecalciferol (D-3) 1,000 UNIT (25MCG) TABLET PO SCH (08:09)
[2018-12-29] MEDS: Furosemide 40 MG TABLET PO SCH (08:09)
[2018-12-29] MEDS: hydroCHLOROthiazide 25 MG TABLET PO SCH (08:09)
[2018-12-29] MEDS: Acetaminophen 325 MG TABLET PO PRN ×2 (08:09→19:50)
[2018-12-30] MEDS ORDERED: Insulin NPH/REG 70/30 100 UNIT/ML (x5UNIT) SQ ONE (08:47)
[2018-12-30] MEDS: Insulin NPH/REG 70/30 100 UNIT/ML (x5UNIT) SQ SCH ×2 (08:49→17:47)
[2018-12-30] MEDS: Cholecalciferol (D-3) 1,000 UNIT (25MCG) TABLET PO SCH (09:49)
[2018-12-30] MEDS: Furosemide 40 MG TABLET PO SCH (09:50)
[2018-12-30] MEDS: hydroCHLOROthiazide 25 MG TABLET PO SCH (09:50)
[2018-12-30] MEDS: Acetaminophen 325 MG TABLET PO PRN (19:56)
[2018-12-30] MEDS ORDERED: amLODIPine 5 MG TABLET PO ONE (23:30)
[2018-12-31] MEDS: *HR* LORazepam 0.5 MG TABLET PO PRN (03:39)
[2018-12-31] MEDS: Insulin NPH/REG 70/30 100 UNIT/ML (x5UNIT) SQ SCH ×2 (09:01→17:11)
[2018-12-31] MEDS: Furosemide 40 MG TABLET PO SCH (09:01)
[2018-12-31] MEDS: Cholecalciferol (D-3) 1,000 UNIT (25MCG) TABLET PO SCH (09:01)
[2018-12-31] MEDS: hydroCHLOROthiazide 25 MG TABLET PO SCH (09:01)
[2019-01-01 07:03] VITALS: BP 180/74
[2019-01-01] MEDS: Insulin NPH/REG 70/30 100 UNIT/ML (x5UNIT) SQ SCH (08:19)
[2019-01-01] MEDS: Furosemide 40 MG TABLET PO SCH (08:20)
[2019-01-01] MEDS: hydroCHLOROthiazide 25 MG TABLET PO SCH (08:20)
[2019-01-01] MEDS: Cholecalciferol (D-3) 1,000 UNIT (25MCG) TABLET PO SCH (08:20)
== END 2019-01-01 19:13 | disposition home health service (06) | DRG 291 ==
LOC: INPPIK 21:22
PROVIDERS: ADMIT Internal Medicine; ATTEND Internal Medicine

== ENCOUNTER 2019-08-18 15:39 | Inpatient (IN) ==
[2019-08-18 16:26] LABS: ABG Base Excess 5 mEq/L (-2 to 3); ABG HCO3 30 mEq/L (21-27); ABG Oxygen Saturation 89 % (95-98); ABG PCO2 45 mmHg (35-45); ABG PH 7.43 pH Units (7.32-7.45); ABG PO2 55 mmHg (85-104); ABG TCO2 31 mEq/L (20-26)
[2019-08-18 16:45] LABS: Basophils % 0.4 %; Eosinophils # 0.5 K/mcL (0.0-0.6); Eosinophils % 5.1 %; Hematocrit 39.9 % (35.3-44.9); Immature Granulocytes % 0.2 % (0-4); Lymphocytes # 2.8 K/mcL (0.6-4.6); Lymphocytes % 31.7 %; Mean Corpuscular HGB Conc 32.6 g/dL (31.6-35.5); Mean Corpuscular Volume 91.9 fL (83.0-100.0); Mean Platelet Volume 12.2 fL (9.4-12.4); Monocytes # 0.9 K/mcL (0.0-1.3); Monocytes % 9.6 %; Neutrophils # 4.8 K/mcL (1.6-8.9); Platelet Count 257 K/mcL (140-400); Red Blood Count 4.34 M/mcL (3.82-4.97); Red Cell Distribution Width 14.1 % (11.5-14.5)
[2019-08-18 16:52] LABS: Prothrombin Time 11.4 Seconds (9.4-12.1)
[2019-08-18 16:54] LABS: Activated Partial Thrombo Time 36.3 Seconds (26.0-36.0)
[2019-08-18 17:04] LABS: Troponin I < 0.03 ng/mL (< 0.04)
[2019-08-18 17:07] LABS: Bilirubin,Urine Negative (Negative); Blood,Urine Large (Negative); Clarity,Urine Cloudy (Clear); Color,Urine Amber (Yellow); Glucose,Urine (UA) Normal (Normal); Ketones,Urine Negative (Negative); Leukocyte Esterase,Urine Small (Negative); Nitrite,Urine Negative (Negative); Protein,Urine 100 mg/dL (Neg-Trace); Urobilinogen,Urine Normal (Normal)
[2019-08-18 17:08] LABS: Alanine Aminotransferase 6 Units/L (7-52); Albumin 3.5 g/dL (3.5-5.7); Albumin/Globulin Ratio 1.2 (1.1-2.2); Alkaline Phosphatase 132 Units/L (34-104); Aspartate Amino Transferase 15 Units/L (13-39); BUN/Creatinine Ratio 16 (6-26); Bilirubin,Direct 0.1 mg/dL (0.0-0.2); Bilirubin,Indirect 0.9 mg/dL (0.0-1.0); Blood Urea Nitrogen 17 mg/dL (8-23); Calcium 10.5 mg/dL (8.6-10.3); Carbon Dioxide 29 mEq/L (23-29); Chloride 98 mEq/L (98-107); Globulin 2.9 g/dL (2.4-3.5); Glucose 186 mg/dL (70-105); Lipase 17 Units/L (11-82); Osmolality,Calculated 286 (280-300); Potassium 4.7 mEq/L (3.5-5.1); Sodium 135 mEq/L (136-145); Total Protein 6.4 g/dL (6.4-8.9); eGFR For African Americans > 60 (> 60); eGFR For Non-African Americans 51 (> 60)
[2019-08-18 17:15] LABS: RBC,Urine TNTC per hpf (0-3)
[2019-08-18 17:16] LABS: Bacteria,Urine Moderate per hpf (None-Few); Mucus,Urine Moderate per lpf (None-Few); Renal Epithelial Cells,Urine Moderate per hpf (None-Few); Squamous Epithelial Cell,Urine Few per hpf (None-Few); Transitional Epi Cells,Urine Few per hpf (None-Few); WBC,Urine 30-50 per hpf (0-3)
[2019-08-18] MEDS ORDERED: Ipratropium/Albuterol Neb 3 ML IH PRN (20:41)
[2019-08-18] MEDS ORDERED: *HR* LORazepam 0.5 MG TABLET PO PRN (20:41)
[2019-08-18] MEDS ORDERED: Naloxone 0.4 MG/ML INJ IVP PRN (20:41)
[2019-08-18] MEDS: Budesonide/Formoterol 80/4.5 1 PUFF INH IH SCH (22:12)
[2019-08-18] MEDS: Acetaminophen 325 MG TABLET PO PRN (22:31)
[2019-08-18] MEDS: Famotidine 20 MG TABLET PO SCH (22:31)
[2019-08-19] MEDS: Acetaminophen 325 MG TABLET PO PRN (03:17)
[2019-08-19 06:19] LABS: Basophils % 0.6 %; Eosinophils # 0.3 K/mcL (0.0-0.6); Eosinophils % 4.1 %; Hematocrit 40.8 % (35.3-44.9); Hemoglobin 12.5 g/dL (11.5-15.4); Immature Granulocytes % 0.1 % (0-4); Lymphocytes # 1.7 K/mcL (0.6-4.6); Lymphocytes % 24.4 %; Mean Corpuscular HGB Conc 30.6 g/dL (31.6-35.5); Mean Corpuscular Hemoglobin 30.3 pg (28.0-33.3); Mean Corpuscular Volume 98.8 fL (83.0-100.0); Mean Platelet Volume 12.2 fL (9.4-12.4); Monocytes # 0.8 K/mcL (0.0-1.3); Monocytes % 12.1 %; Platelet Count 199 K/mcL (140-400); Red Blood Count 4.13 M/mcL (3.82-4.97); Red Cell Distribution Width 14.1 % (11.5-14.5); Segmented Neutrophils % 58.7 %; White Blood Count 6.8 K/mcL (4.3-11.1)
[2019-08-19 06:42] LABS: Calcium 10.1 mg/dL (8.6-10.3)
[2019-08-19] MEDS: lisinopriL 10 MG TABLET PO SCH (08:49)
[2019-08-19] MEDS: amLODIPine 5 MG TABLET PO SCH (08:49)
[2019-08-19] MEDS: Furosemide 20 MG/2 ML VIAL IVP SCH ×2 (08:49→16:23)
[2019-08-19] MEDS: Famotidine 20 MG TABLET PO SCH ×2 (08:49→16:23)
[2019-08-19] MEDS ORDERED: Furosemide 40 MG TABLET PO SCH (09:00)
[2019-08-19] MEDS ORDERED: D5% in Water 1,000 ML IVC PRN (10:07)
[2019-08-19] MEDS ORDERED: Dextrose Gel 15 GM/37.5 ML TUBE PO PRN ×2 (10:07)
[2019-08-19] MEDS ORDERED: *HR* Dextrose 50 % in Water (Vial) 50 ML VIAL IVP PRN (10:07)
[2019-08-19] MEDS: Budesonide/Formoterol 80/4.5 1 PUFF INH IH SCH ×2 (10:22→20:56)
[2019-08-19] MEDS: Insulin LISPRO 300 UNITS/3 ML VIAL SQ SCH ×2 (12:17→16:23)
[2019-08-19] MEDS: cefTRIAXone 1,000 MG in 0.9 % Sodium Chloride Mini Bag 100 ML IVPB SCH (20:07)
[2019-08-20 08:15] LABS: Hematocrit 36.1 % (35.3-44.9); Hemoglobin 11.6 g/dL (11.5-15.4); Mean Corpuscular HGB Conc 32.1 g/dL (31.6-35.5); Mean Corpuscular Hemoglobin 30.1 pg (28.0-33.3); Mean Corpuscular Volume 93.5 fL (83.0-100.0); Mean Platelet Volume 12.5 fL (9.4-12.4); Platelet Count 190 K/mcL (140-400); Red Blood Count 3.86 M/mcL (3.82-4.97); Red Cell Distribution Width 14.1 % (11.5-14.5); White Blood Count 6.8 K/mcL (4.3-11.1)
[2019-08-20 08:32] LABS: Calcium 10.2 mg/dL (8.6-10.3)
[2019-08-20] MEDS: lisinopriL 10 MG TABLET PO SCH (09:31)
[2019-08-20] MEDS: Insulin LISPRO 300 UNITS/3 ML VIAL SQ SCH ×3 (09:31→18:16)
[2019-08-20] MEDS: Famotidine 20 MG TABLET PO SCH ×2 (09:31→18:16)
[2019-08-20] MEDS: amLODIPine 5 MG TABLET PO SCH (09:31)
[2019-08-20] MEDS: Furosemide 20 MG/2 ML VIAL IVP SCH ×2 (09:31→18:16)
[2019-08-20] MEDS: Budesonide/Formoterol 80/4.5 1 PUFF INH IH SCH ×2 (09:58→21:01)
[2019-08-20 10:36] LABS: Estimated Average Glucose 194 mg/dl
[2019-08-20] MEDS: cefTRIAXone 1,000 MG in 0.9 % Sodium Chloride Mini Bag 100 ML IVPB SCH (18:17)
[2019-08-20] MEDS ORDERED: D5% in Water 1,000 ML IVC PRN (23:12)
[2019-08-20] MEDS ORDERED: Dextrose Gel 15 GM/37.5 ML TUBE PO PRN ×2 (23:12)
[2019-08-20] MEDS ORDERED: *HR* Dextrose 50 % in Water (Vial) 50 ML VIAL IVP PRN (23:12)
[2019-08-21] MEDS: amLODIPine 5 MG TABLET PO SCH (08:23)
[2019-08-21] MEDS: lisinopriL 10 MG TABLET PO SCH (08:24)
[2019-08-21] MEDS: Insulin LISPRO 300 UNITS/3 ML VIAL SQ SCH ×2 (08:24→12:02)
[2019-08-21] MEDS: Famotidine 20 MG TABLET PO SCH (08:24)
[2019-08-21] MEDS: Furosemide 20 MG/2 ML VIAL IVP SCH (08:24)
[2019-08-21] MEDS: Budesonide/Formoterol 80/4.5 1 PUFF INH IH SCH (09:59)
[2019-08-21 11:20] VITALS: BP 134/61
[2019-08-21] MEDS ORDERED: Insulin LISPRO 300 UNITS/3 ML VIAL SQ SCH (21:00)
== END 2019-08-21 14:05 | disposition home health service (06) | DRG 291 ==
LOC: INPPIK 15:39 → EMEROOPIK 15:39 → INPPIK 20:15
PROVIDERS: ADMIT Family Medicine; ATTEND Family Medicine

== ENCOUNTER 2020-10-30 07:55 | Inpatient (IN) ==
[2020-10-30 09:10] LABS: Basophils % 0.3 %; Eosinophils % 0.3 %; Hematocrit 41.5 % (35.3-44.9); Hemoglobin 13.2 g/dL (11.5-15.4); Immature Granulocytes % 2.6 % (0-4); Lymphocytes # 0.3 K/mcL (0.6-4.6); Lymphocytes % 8.2 %; Mean Corpuscular HGB Conc 31.8 g/dL (31.6-35.5); Mean Corpuscular Hemoglobin 30.1 pg (28.0-33.3); Mean Corpuscular Volume 94.7 fL (83.0-100.0); Mean Platelet Volume 13.1 fL (9.4-12.4); Monocytes # 0.6 K/mcL (0.0-1.3); Monocytes % 17.9 %; Neutrophils # 2.4 K/mcL (1.6-8.9); Platelet Count 115 K/mcL (140-400); Red Blood Count 4.38 M/mcL (3.82-4.97); Red Cell Distribution Width 14.7 % (11.5-14.5); Segmented Neutrophils % 70.7 %; White Blood Count 3.4 K/mcL (4.3-11.1)
[2020-10-30 09:27] LABS: Albumin 3.1 g/dL (3.5-5.7); Albumin/Globulin Ratio 1.2 (1.1-2.2); Bilirubin,Total 0.7 mg/dL (0.3-1.0); Calcium 9.8 mg/dL (8.6-10.3); Globulin 2.6 g/dL (2.4-3.5); Potassium 3.5 mEq/L (3.5-5.1); Total Protein 5.7 g/dL (6.4-8.9)
[2020-10-30 09:36] LABS: Large Platelets Present (Not Present); Platelet Estimate Slight Decrease (Normal)
[2020-10-30 10:43] LABS: ABG Base Excess 5 mEq/L (-2 to 3); ABG HCO3 31 mEq/L (21-27); ABG Oxygen Saturation 92 % (95-98); ABG PCO2 50 mmHg (35-45); ABG PH 7.39 pH Units (7.32-7.45); ABG PO2 65 mmHg (85-104); ABG TCO2 32 mEq/L (20-26)
[2020-10-30 12:50] LABS: Bilirubin,Urine Negative (Negative); Blood,Urine Moderate (Negative); Clarity,Urine Clear (Clear); Color,Urine Yellow (Yellow); Glucose,Urine (UA) 250 mg/dL (Normal); Ketones,Urine 15 mg/dL (Negative); Leukocyte Esterase,Urine Negative (Negative); Nitrite,Urine Negative (Negative); PH,Urine 5.5 pH Units (5.0-8.0); Protein,Urine >=300 mg/dL (Neg-Trace); Urobilinogen,Urine Normal (Normal)
[2020-10-30 13:00] LABS: Bacteria,Urine Many per hpf (None-Few); Granular Casts,Urine Few per lpf (None Seen); Mucus,Urine Few per lpf (None-Few); Red Blood Cell Casts,Urine Few per lpf (None Seen); Renal Epithelial Cells,Urine Few per hpf (None-Few); Squamous Epithelial Cell,Urine None Seen per hpf (None-Few); Transitional Epi Cells,Urine Few per hpf (None-Few)
[2020-10-30 13:01] LABS: Hyaline Casts,Urine Few per lpf (None Seen)
[2020-10-30] MEDS ORDERED: Isovue-370 500 ML BOTTLE IVP ONE (13:54)
[2020-10-30] MEDS ORDERED: Naloxone 0.4 MG/ML INJ IVP PRN ×2 (14:15→15:19)
[2020-10-30] MEDS ORDERED: Benzonatate 100 MG CAPSULE PO PRN (14:19)
[2020-10-30] MEDS: Levalbuterol 1 PUFF INHALER IH SCH ×2 (14:57→20:30)
[2020-10-30] MEDS ORDERED: Furosemide 40 MG/4 ML VIAL IVP ONE (16:08)
[2020-10-30] MEDS ORDERED: D5% in Water 1,000 ML IVC PRN (16:12)
[2020-10-30] MEDS ORDERED: *HR* Dextrose 50 % in Water (Syg) 50 ML SYRINGE IVP PRN (16:12)
[2020-10-30] MEDS ORDERED: Dextrose Gel 15 GM/37.5 ML TUBE PO PRN ×2 (16:12)
[2020-10-30] MEDS ORDERED: *HR* Metoprolol 5 MG/5 ML VIAL IVP ONE (18:05)
[2020-10-30] MEDS ORDERED: *HR* Metoprolol 5 MG/5 ML VIAL IVP PRN (18:13)
[2020-10-30] MEDS: Dexamethasone Sodium Phos/PF 10 MG/ML VIAL IVP SCH (18:19)
[2020-10-30] MEDS: Azithromycin 250 MG TABLET PO SCH (18:20)
[2020-10-30] MEDS: Insulin LISPRO 300 UNITS/3 ML VIAL SUBQ SCH ×2 (18:38→21:06)
[2020-10-30] MEDS: Budesonide/Formoterol 160/4.5 1 PUFF INH IH SCH (20:30)
[2020-10-31] MEDS: Levalbuterol 1 PUFF INHALER IH SCH ×6 (00:18→22:41)
[2020-10-31 04:01] LABS: Basophils % 0.3 %; Hematocrit 42.9 % (35.3-44.9); Hemoglobin 13.1 g/dL (11.5-15.4); Immature Granulocytes % 4.8 % (0-4); Lymphocytes # 0.4 K/mcL (0.6-4.6); Lymphocytes % 12.3 %; Mean Corpuscular HGB Conc 30.5 g/dL (31.6-35.5); Mean Corpuscular Hemoglobin 29.7 pg (28.0-33.3); Mean Corpuscular Volume 97.3 fL (83.0-100.0); Mean Platelet Volume 12.5 fL (9.4-12.4); Monocytes # 0.3 K/mcL (0.0-1.3); Monocytes % 8.8 %; Neutrophils # 2.6 K/mcL (1.6-8.9); Platelet Count 105 K/mcL (140-400); Red Blood Count 4.41 M/mcL (3.82-4.97); Red Cell Distribution Width 14.6 % (11.5-14.5); Segmented Neutrophils % 73.8 %; White Blood Count 3.5 K/mcL (4.3-11.1)
[2020-10-31 05:52] LABS: Albumin 3.1 g/dL (3.5-5.7); Albumin/Globulin Ratio 1.1 (1.1-2.2); Albumin/Globulin Ratio 1.2 (1.1-2.2); Bilirubin,Direct 0.1 mg/dL (0.0-0.2); Bilirubin,Indirect 0.4 mg/dL (0.0-1.0); Bilirubin,Total 0.5 mg/dL (0.3-1.0); Calcium 9.9 mg/dL (8.6-10.3); Globulin 2.6 g/dL (2.4-3.5); Globulin 2.7 g/dL (2.4-3.5); Magnesium 1.7 mg/dL (1.6-2.6); Potassium 3.8 mEq/L (3.5-5.1); Total Protein 5.7 g/dL (6.4-8.9)
[2020-10-31] MEDS: *HR* Enoxaparin 40 MG/0.4 ML SYRINGE SQ SCH (05:57)
[2020-10-31] MEDS: Budesonide/Formoterol 160/4.5 1 PUFF INH IH SCH ×2 (08:19→22:42)
[2020-10-31] MEDS: Insulin LISPRO 300 UNITS/3 ML VIAL SUBQ SCH ×4 (08:41→20:52)
[2020-10-31] MEDS: Dexamethasone Sodium Phos/PF 10 MG/ML VIAL IVP SCH (08:42)
[2020-10-31] MEDS: lisinopriL 10 MG TABLET PO SCH (08:42)
[2020-10-31] MEDS: Furosemide 20 MG/2 ML VIAL IVP SCH (08:42)
[2020-10-31] MEDS: Azithromycin 250 MG TABLET PO SCH (08:42)
[2020-10-31] MEDS: amLODIPine 5 MG TABLET PO SCH (08:42)
[2020-10-31] MEDS: cefTRIAXone 2,000 MG in Water for inj. (sterile) 20 ML IVP SCH (08:43)
[2020-10-31] MEDS ORDERED: Furosemide 40 MG TABLET PO SCH (09:00)
[2020-10-31] MEDS ORDERED: Remdesivir 200 MG in 0.9 % Sodium Chloride 100 ML IVPB ONE (10:00)
[2020-10-31] MEDS: 0.9 % Sodium Chloride 1,000 ML IVC SCH ×2 (10:21→10:24)
[2020-10-31] MEDS: Potassium Chloride Elixir 20 MEQ/15 ML UDC PO SCH ×2 (10:28→20:51)
[2020-10-31] MEDS: Nystatin POWDER 30 GM BOTTLE TP SCH ×2 (11:31→22:42)
[2020-10-31] MEDS: Famotidine 20 MG TABLET PO SCH ×2 (12:48→20:51)
[2020-10-31] MEDS ORDERED: cefTRIAXone 2,000 MG in Water for inj. (sterile) 20 ML IVP SCH (16:00)
[2020-10-31] MEDS ORDERED: QUEtiapine Fumarate 25 MG TABLET PO SCH (21:00)
[2020-11-01] MEDS: Levalbuterol 1 PUFF INHALER IH SCH ×6 (00:59→20:54)
[2020-11-01] MEDS: *HR* Enoxaparin 40 MG/0.4 ML SYRINGE SQ SCH (05:18)
[2020-11-01] MEDS: Budesonide/Formoterol 160/4.5 1 PUFF INH IH SCH ×2 (07:50→20:58)
[2020-11-01 09:29] LABS: Basophils % 0.4 %; Hemoglobin 12.8 g/dL (11.5-15.4); Immature Granulocytes % 1.5 % (0-4); Lymphocytes # 0.8 K/mcL (0.6-4.6); Mean Corpuscular HGB Conc 31.2 g/dL (31.6-35.5); Mean Corpuscular Volume 96.2 fL (83.0-100.0); Mean Platelet Volume 12.9 fL (9.4-12.4); Monocytes # 0.7 K/mcL (0.0-1.3); Monocytes % 12.9 %; Neutrophils # 3.7 K/mcL (1.6-8.9); Platelet Count 108 K/mcL (140-400); Red Blood Count 4.26 M/mcL (3.82-4.97); Red Cell Distribution Width 14.6 % (11.5-14.5); Segmented Neutrophils % 70.2 %; White Blood Count 5.3 K/mcL (4.3-11.1)
[2020-11-01] MEDS: Potassium Chloride Elixir 20 MEQ/15 ML UDC PO SCH ×3 (09:42→23:00)
[2020-11-01] MEDS: lisinopriL 10 MG TABLET PO SCH (09:44)
[2020-11-01] MEDS: Azithromycin 250 MG TABLET PO SCH (09:44)
[2020-11-01] MEDS: Famotidine 20 MG TABLET PO SCH ×3 (09:45→23:00)
[2020-11-01] MEDS: amLODIPine 5 MG TABLET PO SCH (09:45)
[2020-11-01] MEDS: Nystatin POWDER 30 GM BOTTLE TP SCH ×2 (09:46→22:39)
[2020-11-01 09:54] LABS: Calcium 9.6 mg/dL (8.6-10.3); Potassium 3.7 mEq/L (3.5-5.1)
[2020-11-01] MEDS ORDERED: Remdesivir 100 MG in 0.9 % Sodium Chloride 100 ML IVPB SCH (10:00)
[2020-11-01] MEDS: Insulin LISPRO 300 UNITS/3 ML VIAL SUBQ SCH ×4 (10:04→22:36)
[2020-11-01] MEDS: cefTRIAXone 2,000 MG in Water for inj. (sterile) 20 ML IVP SCH (10:22)
[2020-11-01] MEDS: Dexamethasone Sodium Phos/PF 10 MG/ML VIAL IVP SCH (10:23)
[2020-11-01] MEDS: Furosemide 20 MG/2 ML VIAL IVP SCH (10:23)
[2020-11-01 14:01] LABS: Albumin 2.8 g/dL (3.5-5.7); Albumin/Globulin Ratio 1.2 (1.1-2.2); Bilirubin,Direct 0.1 mg/dL (0.0-0.2); Bilirubin,Indirect 0.2 mg/dL (0.0-1.0); Bilirubin,Total 0.3 mg/dL (0.3-1.0); Globulin 2.3 g/dL (2.4-3.5); Total Protein 5.1 g/dL (6.4-8.9)
[2020-11-01] MEDS: Mag Hydrox/Al Hydrox/Simeth 30 ML UDC PO SCH ×2 (15:30→23:00)
[2020-11-02] MEDS: Levalbuterol 1 PUFF INHALER IH SCH ×6 (00:29→21:03)
[2020-11-02] MEDS: Mag Hydrox/Al Hydrox/Simeth 30 ML UDC PO SCH ×3 (05:28→16:55)
[2020-11-02] MEDS ORDERED: *HR* Enoxaparin 30 MG/0.3 ML SYRINGE SQ SCH (06:00)
[2020-11-02 06:03] LABS: Basophils # 0.1 K/mcL (0.0-0.2); Basophils % 0.5 %; Eosinophils # 0.2 K/mcL (0.0-0.6); Eosinophils % 1.4 %; Hematocrit 46.3 % (35.3-44.9); Hemoglobin 13.8 g/dL (11.5-15.4); Immature Granulocytes % 7.3 % (0-4); Lymphocytes # 0.8 K/mcL (0.6-4.6); Lymphocytes % 5.6 %; Mean Corpuscular HGB Conc 29.8 g/dL (31.6-35.5); Mean Corpuscular Hemoglobin 30.5 pg (28.0-33.3); Mean Corpuscular Volume 102.2 fL (83.0-100.0); Mean Platelet Volume 12.6 fL (9.4-12.4); Monocytes # 1.4 K/mcL (0.0-1.3); Neutrophils # 10.8 K/mcL (1.6-8.9); Nucleated Red Blood Cells 0.4 /100 WBC (0); Platelet Count 166 K/mcL (140-400); Red Blood Count 4.53 M/mcL (3.82-4.97); Red Cell Distribution Width 15.1 % (11.5-14.5); Segmented Neutrophils % 75.2 %; White Blood Count 14.3 K/mcL (4.3-11.1)
[2020-11-02 06:22] LABS: Albumin 3.1 g/dL (3.5-5.7); Albumin/Globulin Ratio 1.1 (1.1-2.2); Bilirubin,Direct 0.1 mg/dL (0.0-0.2); Bilirubin,Indirect 0.3 mg/dL (0.0-1.0); Bilirubin,Total 0.4 mg/dL (0.3-1.0); Globulin 2.8 g/dL (2.4-3.5); Total Protein 5.9 g/dL (6.4-8.9)
[2020-11-02 06:23] LABS: Albumin 3.1 g/dL (3.5-5.7); Albumin/Globulin Ratio 1.1 (1.1-2.2); Bilirubin,Total 0.4 mg/dL (0.3-1.0); Globulin 2.8 g/dL (2.4-3.5); Potassium 4.6 mEq/L (3.5-5.1); Total Protein 5.9 g/dL (6.4-8.9)
[2020-11-02] MEDS: Budesonide/Formoterol 160/4.5 1 PUFF INH IH SCH ×2 (08:00→21:04)
[2020-11-02] MEDS ORDERED: Dexamethasone Sodium Phos/PF 10 MG/ML VIAL IVP SCH (09:00)
[2020-11-02] MEDS: Insulin LISPRO 300 UNITS/3 ML VIAL SUBQ SCH ×2 (10:27→15:13)
[2020-11-02] MEDS: cefTRIAXone 2,000 MG in Water for inj. (sterile) 20 ML IVP SCH (10:34)
[2020-11-02] MEDS: Potassium Chloride Elixir 20 MEQ/15 ML UDC PO SCH ×2 (10:53→19:43)
[2020-11-02] MEDS: Famotidine 20 MG TABLET PO SCH ×2 (10:53→19:42)
[2020-11-02] MEDS: Nystatin POWDER 30 GM BOTTLE TP SCH ×2 (10:53→21:48)
[2020-11-02] MEDS: amLODIPine 5 MG TABLET PO SCH (10:53)
[2020-11-02] MEDS: Azithromycin 250 MG TABLET PO SCH (10:54)
[2020-11-02] MEDS: lisinopriL 10 MG TABLET PO SCH (10:54)
[2020-11-02] MEDS ORDERED: 0.9 % Sodium Chloride 1,000 ML IVC SCH (15:00)
[2020-11-02] MEDS ORDERED: Insulin LISPRO 300 UNITS/3 ML VIAL SUBQ SCH (18:00)
[2020-11-02 18:50] LABS: ABG PCO2 > 150 mmHg (35-45); ABG PO2 103 mmHg (85-104)
[2020-11-02 18:57] LABS: Blood Gas Modality AVAPS; Blood Gas VT 500 cc
[2020-11-02 19:28] VITALS: BP 80/42; PULSE 47; RESP 16; TEMP 95.4
[2020-11-02] MEDS ORDERED: Morphine Sulfate Oral CONC 10 MG/0.5 ML ORAL.SYG PO PRN (20:32)
[2020-11-02] MEDS ORDERED: Haloperidol Oral Conc 10 MG/5 ML UDC PO PRN (20:36)
[2020-11-02] MEDS ORDERED: *HR* LORazepam Oral Conc 2 MG/ML PO PRN (20:37)
[2020-11-02] MEDS ORDERED: Scopolamine Patch 1.5 MG PATCH.TD72 TD SCH (20:45)
[2020-11-02 23:48] VITALS: O2SAT 96
[2020-11-04] MEDS ORDERED: Ergocalciferol (VIT D2) 50,000 UNIT (1.25MG) CAP PO SCH (09:00)
== END 2020-11-02 23:58 | disposition expired | DRG 177 ==
LOC: EMEROOPIK 07:55 → INPPIK 07:55
PROVIDERS: ADMIT Internal Medicine; ATTEND Internal Medicine